=== PATIENT | female | born 1935 | race African-American/Black ===

== ENCOUNTER → 2017-06-12 | Outpatient (CLI) | payer MEDICARE, MEDICAID | END | disposition home or self-care (01) | LOC: RAD 14:01 | PROVIDERS: ATTEND Internal Medicine Cardiovascular Disease | DX: Z01.818 Encounter for other preprocedural examination (principal); I51.7 Cardiomegaly; I48.91 Unspecified atrial fibrillation | CPT/HCPCS: 71046 ==

== ENCOUNTER 2018-12-01 12:58 | Emergency (ER) | payer MEDICARE, MEDICAID ==
[~2018-12-01] VITALS: Ht 172.7 cm; Wt 130.0 kg
[~2018-12-01 12:58] MED LIST: ACET12.53 PO; APIX2.5T PO; FURO40TA5 PO; GLIP5TAB12 PO; HYDR-4133 PO; METO25TA6 PO
[2018-12-01] MEDS ORDERED: ACETAMINOPHEN WITH CODEINE 300/30MG TABLET PO STA (16:02)
[2018-12-01] MEDS ORDERED: FUROSEMIDE 40MG TABLET PO ONE (16:15)
[2018-12-01] MEDS ORDERED: METOPROLOL TARTRATE 100MG TABLET PO ONE (16:15)
[2018-12-01 16:41] LABS: BASOPHILS % 1.5 % (0.0-2.0); EOSINOPHILS % 1.6 % (0.0-5.0); HEMATOCRIT. 29.7 % (36.0-48.0); HEMOGLOBIN. 9.7 g/dL (12.0-16.0); LYMPHOCYTES % 23.5 % (20.0-50.0); MEAN CORPUSCULAR HEMOGLOBIN 33.2 pg (28.0-32.0); MEAN CORPUSCULAR VOLUME 101.5 fL (81.0-99.0); MEAN PLATELET VOLUME 8.9 fl (7.4-10.4); MONOCYTES % 12.9 % (2.0-8.0); NEUTROPHILS % 60.5 % (40.0-76.0); PLATELET 133 x1000/uL (130-400); RED BLOOD CELL COUNT 2.93 mill/uL (4.2-5.4); RED CELL DISTRIBUTION WIDTH 14.7 % (11.6-14.6)
[2018-12-01 16:44] LABS: CHLORIDE 112 mEq/L (98-107)
[2018-12-01 18:45] VITALS: BP 175/81
== END 2018-12-01 18:45 | disposition home or self-care (01) ==
LOC: ER 14:39
DX: M79.674 Pain in right toe(s) (principal); I16.0 Hypertensive urgency
CPT/HCPCS: 36415; 73660; 93005; 99284

== ENCOUNTER 2019-04-28 22:46 | Inpatient (IN) | payer MEDICARE, MEDICAID ==
[~2019-04-28] VITALS: Ht 165.1 cm; Wt 96.6 kg
[2019-04-28] MEDS ORDERED: ALBUTEROL (0.083%) 2.5MG/3ML NEB HHN STA (23:12)
[2019-04-28] MEDS ORDERED: IPRATROPIUM BROMIDE (0.02%) 0.5MG/2.5ML NEB HHN STA (23:12)
[2019-04-28] MEDS ORDERED: NITROGLYCERIN OINT 1GM/INCH UDPKT TD ONE (23:15)
[2019-04-28] MEDS ORDERED: MAGNESIUM 2 G PREMIX 50 ML IV ONE (23:15)
[2019-04-28] MEDS ORDERED: FUROSEMIDE 40MG/4ML VIAL IV ONE (23:15)
[2019-04-28 23:45] LABS: BASOPHILS % 1.1 % (0.0-2.0); EOSINOPHILS % 0.2 % (0.0-5.0); HEMATOCRIT. 29.8 % (36.0-48.0); HEMOGLOBIN. 9.9 g/dL (12.0-16.0); LYMPHOCYTES % 9.5 % (20.0-50.0); MEAN CORPUSCULAR HEMOGLOBIN 33.4 pg (28.0-32.0); MEAN CORPUSCULAR VOLUME 100.7 fL (81.0-99.0); MEAN PLATELET VOLUME 9.2 fl (7.4-10.4); MONOCYTES % 12.2 % (2.0-8.0); PLATELET 121 x1000/uL (130-400); RED BLOOD CELL COUNT 2.96 mill/uL (4.2-5.4); RED CELL DISTRIBUTION WIDTH 14.3 % (11.6-14.6)
[2019-04-28 23:48] LABS: CHLORIDE 109 mEq/L (98-107)
[2019-04-29] VITALS (9 sets, daily range): BP systolic 90–156; BP diastolic 38–99
[2019-04-29 04:42] LABS: BG BASE EXCESS 1.6 mmol/L (-2.0-2.0); BG BILEVEL POS AIRWAY PRESSURE 15/5; BG CARBOXYHEMOGLOBIN 0.6 % (0.5-1.5); BG DEOXYHEMOGLOBIN 4.7 % (0.0-5.0); BG FRACTION INSPIRED OXYGEN 35; BG HCO3 ACT 28.6 mmol/L (22.0-26.0); BG METHEMOGLOBIN 0.3 % (0.0-1.5); BG OXYGEN SATURATION 95.3 % (92.0-98.5); BG OXYHEMOGLOBIN 94.4 % (94.0-97.0); BG PCO2 59.4 mmHg (35.0-45.0); BG PH 7.301 (7.350-7.450); BG PO2 83.9 mmHg (75.0-100.0); BG SAMPLE SITE RIGHT RADIAL; BG TOTAL HEMOGLOBIN 8.9 g/dL (12.0-18.0); BG VENT MODE MASK - BIPAP; BG VENT RATE 16 set
[2019-04-29] MEDS ORDERED: ENOXAPARIN 40MG/0.4ML SYR SUBCUT SCH (11:30)
[2019-04-29] MEDS ORDERED: ACETAMINOPHEN 325MG TABLET PO PRN (15:00)
[2019-04-29] MEDS ORDERED: DEXTROSE 50% WATER 50ML SYRINGE IV PRN (15:00)
[2019-04-29] MEDS: POTASSIUM CHLORIDE 20MEQ TABLET SR PO SCH (15:27)
[2019-04-29] MEDS: GUAIFENESIN 200MG/10ML SUGAR FREE UDC PO PRN (15:27)
[2019-04-29] MEDS: DILTIAZEM HCL 60MG TABLET PO SCH ×2 (15:28→21:32)
[2019-04-29] MEDS: FUROSEMIDE 40MG/4ML VIAL IVP SCH (17:40)
[2019-04-29] MEDS: BLOOD SUGAR DIAGNOSTIC STRIP TEST SCH ×2 (17:40→21:32)
[2019-04-29] MEDS: APIXABAN 2.5 MG TABLET PO SCH (17:40)
[2019-04-29] MEDS: INSULIN LISPRO 100 UNITS/ML SUBCUT SCH ×2 (18:00→21:33)
[2019-04-29] MEDS: IPRATROPIUM/ALBUTEROL 0.5-3(2.5)MG/3ML NEB HHN SCH (20:24)
[2019-04-29] MEDS ORDERED: PREDNISONE 20MG TABLET PO SCH (23:45)
[2019-04-30] VITALS (12 sets, daily range): BP systolic 110–152; BP diastolic 49–89
[2019-04-30] MEDS: IPRATROPIUM/ALBUTEROL 0.5-3(2.5)MG/3ML NEB HHN SCH ×4 (01:03→20:44)
[2019-04-30 05:34] LABS: CHLORIDE 108 mEq/L (98-107)
[2019-04-30 05:48] LABS: BASOPHILS % 0.2 % (0.0-2.0); EOSINOPHILS % 0.1 % (0.0-5.0); HEMOGLOBIN. 9.6 g/dL (12.0-16.0); LYMPHOCYTES % 11.5 % (20.0-50.0); MEAN CORPUSCULAR HEMOGLOBIN 33.3 pg (28.0-32.0); MEAN CORPUSCULAR VOLUME 100.6 fL (81.0-99.0); MEAN PLATELET VOLUME 9.7 fl (7.4-10.4); MONOCYTES % 13.9 % (2.0-8.0); NEUTROPHILS % 74.3 % (40.0-76.0); PLATELET 125 x1000/uL (130-400); RED BLOOD CELL COUNT 2.89 mill/uL (4.2-5.4); RED CELL DISTRIBUTION WIDTH 14.3 % (11.6-14.6)
[2019-04-30] MEDS: DILTIAZEM HCL 60MG TABLET PO SCH ×3 (06:13→21:14)
[2019-04-30] MEDS: FUROSEMIDE 40MG/4ML VIAL IVP SCH ×2 (06:14→18:25)
[2019-04-30] MEDS: BLOOD SUGAR DIAGNOSTIC STRIP TEST SCH ×4 (08:17→21:00)
[2019-04-30] MEDS: APIXABAN 2.5 MG TABLET PO SCH ×2 (08:26→18:25)
[2019-04-30] MEDS: ONDANSETRON HCL 4MG/2ML INJ IV PRN ×2 (08:26→18:25)
[2019-04-30] MEDS: INSULIN LISPRO 100 UNITS/ML SUBCUT SCH ×4 (08:26→21:22)
[2019-04-30] MEDS: POTASSIUM CHLORIDE 20MEQ TABLET SR PO SCH ×2 (08:27→08:34)
[2019-04-30] MEDS ORDERED: METOCLOPRAMIDE HCL 10MG/2ML VIAL IV NR (12:30)
[2019-04-30] MEDS ORDERED: LACTULOSE 20G/30ML UDC PO NR (12:30)
[2019-05-01] VITALS (11 sets, daily range): BP systolic 125–167; BP diastolic 55–94
[2019-05-01] MEDS: ONDANSETRON HCL 4MG/2ML INJ IV PRN (01:04)
[2019-05-01] MEDS: IPRATROPIUM/ALBUTEROL 0.5-3(2.5)MG/3ML NEB HHN SCH ×4 (02:19→20:17)
[2019-05-01] MEDS: CLONIDINE 0.1MG TABLET PO PRN (04:49)
[2019-05-01] MEDS: FUROSEMIDE 40MG/4ML VIAL IVP SCH ×2 (06:33→16:59)
[2019-05-01] MEDS: DILTIAZEM HCL 60MG TABLET PO SCH ×3 (06:33→21:43)
[2019-05-01 07:32] LABS: BASOPHILS % 0.2 % (0.0-2.0); HEMATOCRIT. 29.2 % (36.0-48.0); HEMOGLOBIN. 9.7 g/dL (12.0-16.0); MEAN CORPUSCULAR HEMOGLOBIN 33.7 pg (28.0-32.0); MEAN CORPUSCULAR VOLUME 100.9 fL (81.0-99.0); MEAN PLATELET VOLUME 9.3 fl (7.4-10.4); MONOCYTES % 14.9 % (2.0-8.0); NEUTROPHILS % 76.9 % (40.0-76.0); PLATELET 122 x1000/uL (130-400); RED BLOOD CELL COUNT 2.89 mill/uL (4.2-5.4); RED CELL DISTRIBUTION WIDTH 13.8 % (11.6-14.6)
[2019-05-01] MEDS: BLOOD SUGAR DIAGNOSTIC STRIP TEST SCH ×4 (07:43→21:42)
[2019-05-01] MEDS: APIXABAN 2.5 MG TABLET PO SCH ×2 (08:00→16:54)
[2019-05-01] MEDS: POTASSIUM CHLORIDE 20MEQ TABLET SR PO SCH (08:01)
[2019-05-01] MEDS: INSULIN LISPRO 100 UNITS/ML SUBCUT SCH ×4 (08:04→21:42)
[2019-05-02] VITALS (11 sets, daily range): BP systolic 127–171; BP diastolic 50–92
[2019-05-02] MEDS: IPRATROPIUM/ALBUTEROL 0.5-3(2.5)MG/3ML NEB HHN SCH ×4 (01:40→20:56)
[2019-05-02] MEDS: FUROSEMIDE 40MG/4ML VIAL IVP SCH ×2 (06:11→16:45)
[2019-05-02] MEDS: DILTIAZEM HCL 60MG TABLET PO SCH ×3 (06:12→21:22)
[2019-05-02] MEDS: INSULIN LISPRO 100 UNITS/ML SUBCUT SCH ×4 (08:00→21:00)
[2019-05-02] MEDS: BLOOD SUGAR DIAGNOSTIC STRIP TEST SCH ×4 (08:12→21:00)
[2019-05-02] MEDS: APIXABAN 2.5 MG TABLET PO SCH ×2 (09:14→17:26)
[2019-05-02] MEDS: POTASSIUM CHLORIDE 20MEQ TABLET SR PO SCH (09:14)
[2019-05-02] MEDS: CLONIDINE 0.1MG TABLET PO PRN (16:46)
[2019-05-03] VITALS (12 sets, daily range): BP systolic 139–165; BP diastolic 58–91
[2019-05-03] MEDS: IPRATROPIUM/ALBUTEROL 0.5-3(2.5)MG/3ML NEB HHN SCH ×4 (01:03→21:45)
[2019-05-03] MEDS: DILTIAZEM HCL 60MG TABLET PO SCH ×3 (06:14→22:11)
[2019-05-03] MEDS: FUROSEMIDE 40MG/4ML VIAL IVP SCH ×2 (06:14→18:13)
[2019-05-03 07:44] LABS: HEMATOCRIT. 30.7 % (36.0-48.0); HEMOGLOBIN. 10.3 g/dL (12.0-16.0); MEAN CORPUSCULAR HEMOGLOBIN 33.5 pg (28.0-32.0); MEAN CORPUSCULAR VOLUME 100.2 fL (81.0-99.0); MEAN PLATELET VOLUME 9.3 fl (7.4-10.4); PLATELET 126 x1000/uL (130-400); RED BLOOD CELL COUNT 3.06 mill/uL (4.2-5.4); RED CELL DISTRIBUTION WIDTH 13.9 % (11.6-14.6)
[2019-05-03] MEDS: APIXABAN 2.5 MG TABLET PO SCH ×2 (08:22→18:13)
[2019-05-03] MEDS: INSULIN LISPRO 100 UNITS/ML SUBCUT SCH ×4 (08:23→22:20)
[2019-05-03] MEDS: POTASSIUM CHLORIDE 20MEQ TABLET SR PO SCH (08:23)
[2019-05-03] MEDS: BLOOD SUGAR DIAGNOSTIC STRIP TEST SCH ×4 (08:24→21:00)
[2019-05-03 08:48] LABS: BG BASE EXCESS 9.7 mmol/L (-2.0-2.0); BG CARBOXYHEMOGLOBIN 0.1 % (0.5-1.5); BG DEOXYHEMOGLOBIN 23.9 % (0.0-5.0); BG HCO3 ACT 37.7 mmol/L (22.0-26.0); BG METHEMOGLOBIN 0.2 % (0.0-1.5); BG OXYHEMOGLOBIN 75.8 % (94.0-97.0); BG PCO2 72.1 mmHg (35.0-45.0); BG PH 7.336 (7.350-7.450); BG PO2 39.5 mmHg (75.0-100.0); BG SAMPLE SITE RIGHT RADIAL; BG TOTAL HEMOGLOBIN 10.8 g/dL (12.0-18.0); BG VENT MODE ROOM AIR
[2019-05-03] MEDS: CLONIDINE 0.1MG TABLET PO PRN (11:44)
[2019-05-03 14:08] LABS: PLATELET ESTIMATE SLIGHTLY DECREASED
[2019-05-03] MEDS: CLONIDINE 0.1MG TABLET PO SCH ×2 (15:36→22:10)
[2019-05-04] VITALS (13 sets, daily range): BP systolic 120–190; BP diastolic 61–92
[2019-05-04] MEDS: IPRATROPIUM/ALBUTEROL 0.5-3(2.5)MG/3ML NEB HHN SCH ×4 (02:00→22:10)
[2019-05-04] MEDS: CLONIDINE 0.1MG TABLET PO PRN ×2 (03:28→18:50)
[2019-05-04] MEDS: DILTIAZEM HCL 60MG TABLET PO SCH ×3 (05:51→21:17)
[2019-05-04] MEDS: FUROSEMIDE 40MG/4ML VIAL IVP SCH ×2 (06:41→18:51)
[2019-05-04] MEDS: BLOOD SUGAR DIAGNOSTIC STRIP TEST SCH ×4 (07:47→21:12)
[2019-05-04] MEDS: INSULIN LISPRO 100 UNITS/ML SUBCUT SCH ×4 (08:00→21:14)
[2019-05-04] MEDS: APIXABAN 2.5 MG TABLET PO SCH ×2 (08:28→18:50)
[2019-05-04] MEDS: CLONIDINE 0.1MG TABLET PO SCH ×2 (08:29→21:16)
[2019-05-05 02:00] VITALS: BP 141/58
[2019-05-05] MEDS: IPRATROPIUM/ALBUTEROL 0.5-3(2.5)MG/3ML NEB HHN SCH ×2 (02:38→08:11)
[2019-05-05 03:48] VITALS: BP 135/63
[2019-05-05] MEDS: DILTIAZEM HCL 60MG TABLET PO SCH (05:20)
[2019-05-05 06:01] VITALS: BP 132/64
[2019-05-05] MEDS: FUROSEMIDE 40MG/4ML VIAL IVP SCH (06:11)
[2019-05-05] MEDS: BLOOD SUGAR DIAGNOSTIC STRIP TEST SCH (07:30)
[2019-05-05] MEDS: CLONIDINE 0.1MG TABLET PO SCH (08:44)
[2019-05-05] MEDS: GUAIFENESIN 200MG/10ML SUGAR FREE UDC PO PRN (08:44)
[2019-05-05] MEDS: APIXABAN 2.5 MG TABLET PO SCH (08:44)
[2019-05-05] MEDS: INSULIN LISPRO 100 UNITS/ML SUBCUT SCH (08:59)
[2019-05-05 09:33] VITALS: BP 142/74
== END 2019-05-05 13:20 | disposition home or self-care (01) | DRG 291 ==
LOC: ER 22:46 → EDBEDREQ 04-29 04:59 → EDBEDREQTM 04-29 04:59 → ENRESERV 04-29 08:13 → 5EST 04-29 08:42
PROVIDERS: ADMIT Internal Medicine; ATTEND Internal Medicine
PROC: 5A09457 Assistance with Respiratory Ventilation, 24-96 Consecutive Hours, Continuous Positive Airway Pressure (ICD-10-PCS; principal; 2019-04-28)
DX: I13.0 Hypertensive heart and chronic kidney disease with heart failure and stage 1 through stage 4 chronic kidney disease, or unspecified chronic kidney disease (principal); I50.23 Acute on chronic systolic (congestive) heart failure; J96.21 Acute and chronic respiratory failure with hypoxia; J96.22 Acute and chronic respiratory failure with hypercapnia; J44.1 Chronic obstructive pulmonary disease with (acute) exacerbation; I48.20 Chronic atrial fibrillation, unspecified; E87.2 Acidosis; N17.9 Acute kidney failure, unspecified; I50.32 Chronic diastolic (congestive) heart failure; I42.9 Cardiomyopathy, unspecified; E11.22 Type 2 diabetes mellitus with diabetic chronic kidney disease; E78.5 Hyperlipidemia, unspecified; E87.5 Hyperkalemia; I27.20 Pulmonary hypertension, unspecified; J06.9 Acute upper respiratory infection, unspecified; N18.3 Chronic kidney disease, stage 3 (moderate); Z79.01 Long term (current) use of anticoagulants; Z79.899 Other long term (current) drug therapy; Z85.038 Personal history of other malignant neoplasm of large intestine; Z86.73 Personal history of transient ischemic attack (TIA), and cerebral infarction without residual deficits; Z87.891 Personal history of nicotine dependence; Z88.0 Allergy status to penicillin
CPT/HCPCS: 36415; 36600; 71045; 74018; 80048; 80053; 82375; 82805; 82962; 83880; 84484; 85025; 93005; 93306; 93970; 94640; 94644; 94660; 97116; 97162; 99291; A6261; J1815; J1940; J2405; J2765; J3475; J7512; J7611; J7620

== ENCOUNTER 2019-05-06 04:04 | Inpatient (IN) | payer MEDICARE, MEDICAID ==
[~2019-05-06] VITALS: Ht 172.7 cm; Wt 123.9 kg
[2019-05-06] VITALS (9 sets, daily range): BP systolic 139–197; BP diastolic 59–150
[2019-05-06 06:56] LABS: BG BASE EXCESS 4.8 mmol/L (-2.0-2.0); BG CARBOXYHEMOGLOBIN 0.9 % (0.5-1.5); BG DEOXYHEMOGLOBIN 10.9 % (0.0-5.0); BG FRACTION INSPIRED OXYGEN 28; BG HCO3 ACT 32.5 mmol/L (22.0-26.0); BG METHEMOGLOBIN 0.2 % (0.0-1.5); BG PCO2 65.2 mmHg (35.0-45.0); BG PH 7.315 (7.350-7.450); BG PO2 61.3 mmHg (75.0-100.0); BG SAMPLE SITE RIGHT RADIAL; BG TOTAL HEMOGLOBIN 11.2 g/dL (12.0-18.0); BG VENT MODE NASAL CANNULA
[2019-05-06 07:39] LABS: HEMATOCRIT. 32.7 % (36.0-48.0); HEMOGLOBIN. 10.8 g/dL (12.0-16.0); MEAN CORPUSCULAR HEMOGLOBIN 32.8 pg (28.0-32.0); MEAN CORPUSCULAR VOLUME 98.9 fL (81.0-99.0); MEAN PLATELET VOLUME 9.1 fl (7.4-10.4); PLATELET 165 x1000/uL (130-400); RED CELL DISTRIBUTION WIDTH 13.6 % (11.6-14.6)
[2019-05-06 07:42] LABS: CHLORIDE 94 mEq/L (98-107)
[2019-05-06] MEDS ORDERED: IPRATROPIUM BROMIDE (0.02%) 0.5MG/2.5ML NEB HHN STA (07:55)
[2019-05-06] MEDS ORDERED: ALBUTEROL (0.083%) 2.5MG/3ML NEB HHN STA (07:55)
[2019-05-06] MEDS ORDERED: METHYLPREDNISOLONE SOD SUCC 125 MG/2 ML VIAL IV STA (07:55)
[2019-05-06] MEDS ORDERED: LEVOFLOXACIN 750MG PREMIX 150 ML IV ONE (08:15)
[2019-05-06 08:19] LABS: INR 1.2; PROTHROMBIN TIME 12.6 sec (9.6-11.0)
[2019-05-06 10:40] LABS: PLATELET ESTIMATE NORMAL
[2019-05-06] MEDS ORDERED: METHYLPREDNISOLONE SOD SUCC 125 MG/2 ML VIAL IV SCH (13:00)
[2019-05-06] MEDS ORDERED: ACETAMINOPHEN 325MG TABLET PO PRN (15:00)
[2019-05-06] MEDS ORDERED: ENOXAPARIN 40MG/0.4ML SYR SUBCUT SCH (15:00)
[2019-05-06] MEDS ORDERED: DIPHENHYDRAMINE 50MG/ML VIAL IV PRN (15:00)
[2019-05-06] MEDS ORDERED: IPRATROPIUM/ALBUTEROL 0.5-3(2.5)MG/3ML NEB NEB PRN (15:00)
[2019-05-06] MEDS ORDERED: ONDANSETRON HCL 4MG/2ML INJ IV PRN (15:00)
[2019-05-06] MEDS ORDERED: CLONIDINE 0.1MG TABLET PO PRN (15:00)
[2019-05-06] MEDS ORDERED: MAGNESIUM/ALUMINUM HYDROXIDE/SIMETHICONE 30ML UDC PO PRN (15:00)
[2019-05-06] MEDS ORDERED: DEXTROSE 50% WATER 50ML SYRINGE IV PRN (15:00)
[2019-05-06] MEDS ORDERED: HYDRALAZINE 20MG/ML VIAL IV PRN (15:00)
[2019-05-06] MEDS ORDERED: MAGNESIUM HYDROXIDE 400MG/5ML 30ML UDC PO PRN (15:00)
[2019-05-06] MEDS: BLOOD SUGAR DIAGNOSTIC STRIP TEST SCH ×2 (16:50→21:36)
[2019-05-06] MEDS: INSULIN LISPRO 100 UNITS/ML SUBCUT SCH ×2 (17:20→21:43)
[2019-05-06] MEDS: DOCUSATE SODIUM 100MG CAPSULE PO SCH (18:43)
[2019-05-06] MEDS: CLONIDINE 0.1MG TABLET PO SCH ×2 (18:43→21:00)
[2019-05-06] MEDS: APIXABAN 2.5 MG TABLET PO SCH (18:44)
[2019-05-06] MEDS ORDERED: FAMOTIDINE 20MG TABLET PO SCH (21:00)
[2019-05-06] MEDS: METHYLPREDNISOLONE SOD SUCC 125 MG/2 ML VIAL IV SCH (21:24)
[2019-05-06] MEDS: SILDENAFIL CITRATE 20MG TABLET PO SCH (21:24)
[2019-05-06] MEDS: SODIUM CHLORIDE 0.9% INJ 3ML FLUSH IVF SCH (21:24)
[2019-05-06] MEDS: DILTIAZEM HCL 60MG TABLET PO SCH (21:24)
[2019-05-06] MEDS: INSULIN GLARGINE UD 100 UNITS/ML SYR SUBCUT SCH (21:36)
[2019-05-06] MEDS: FAMOTIDINE 40MG TABLET PO SCH (21:41)
[2019-05-06] MEDS: IPRATROPIUM/ALBUTEROL 0.5-3(2.5)MG/3ML NEB HHN SCH (22:28)
[2019-05-07] VITALS (16 sets, daily range): BP systolic 123–178; BP diastolic 65–99
[2019-05-07] MEDS: IPRATROPIUM/ALBUTEROL 0.5-3(2.5)MG/3ML NEB HHN SCH ×4 (02:41→21:26)
[2019-05-07] MEDS: BLOOD SUGAR DIAGNOSTIC STRIP TEST SCH ×4 (06:08→21:00)
[2019-05-07] MEDS: SODIUM CHLORIDE 0.9% INJ 3ML FLUSH IVF SCH ×3 (06:08→22:14)
[2019-05-07] MEDS: SILDENAFIL CITRATE 20MG TABLET PO SCH ×3 (06:08→22:15)
[2019-05-07] MEDS: METHYLPREDNISOLONE SOD SUCC 125 MG/2 ML VIAL IV SCH ×3 (06:08→22:14)
[2019-05-07] MEDS: DILTIAZEM HCL 60MG TABLET PO SCH ×3 (06:08→22:15)
[2019-05-07] MEDS: INSULIN LISPRO 100 UNITS/ML SUBCUT SCH ×4 (07:56→22:32)
[2019-05-07] MEDS: APIXABAN 2.5 MG TABLET PO SCH ×2 (08:13→17:43)
[2019-05-07] MEDS: FUROSEMIDE 40MG/4ML VIAL IVP SCH (08:13)
[2019-05-07] MEDS: CLONIDINE 0.1MG TABLET PO SCH ×2 (08:13→22:16)
[2019-05-07] MEDS: DOCUSATE SODIUM 100MG CAPSULE PO SCH ×2 (08:13→17:43)
[2019-05-07] MEDS: LOSARTAN POTASSIUM 100 MG TABLET PO SCH (12:36)
[2019-05-07] MEDS: FAMOTIDINE 40MG TABLET PO SCH (22:16)
[2019-05-07] MEDS: INSULIN GLARGINE UD 100 UNITS/ML SYR SUBCUT SCH (22:28)
[2019-05-07] MEDS: GUAIFENESIN 200MG/10ML SUGAR FREE UDC PO PRN (22:32)
[2019-05-08] VITALS (14 sets, daily range): BP systolic 114–158; BP diastolic 61–83
[2019-05-08] MEDS: IPRATROPIUM/ALBUTEROL 0.5-3(2.5)MG/3ML NEB HHN SCH ×3 (04:02→14:30)
[2019-05-08] MEDS: SILDENAFIL CITRATE 20MG TABLET PO SCH ×3 (06:05→22:30)
[2019-05-08] MEDS: DILTIAZEM HCL 60MG TABLET PO SCH ×3 (06:07→22:32)
[2019-05-08] MEDS: SODIUM CHLORIDE 0.9% INJ 3ML FLUSH IVF SCH ×3 (06:08→22:00)
[2019-05-08] MEDS: BLOOD SUGAR DIAGNOSTIC STRIP TEST SCH ×4 (06:08→21:00)
[2019-05-08] MEDS: METHYLPREDNISOLONE SOD SUCC 125 MG/2 ML VIAL IV SCH ×3 (06:08→22:32)
[2019-05-08 06:50] LABS: HEMATOCRIT. 32.2 % (36.0-48.0); HEMOGLOBIN. 10.8 g/dL (12.0-16.0); MEAN PLATELET VOLUME 8.7 fl (7.4-10.4); PLATELET 217 x1000/uL (130-400); RED BLOOD CELL COUNT 3.28 mill/uL (4.2-5.4); RED CELL DISTRIBUTION WIDTH 13.5 % (11.6-14.6)
[2019-05-08 06:58] LABS: PHOSPHORUS 2.3 mg/dL (2.5-4.9)
[2019-05-08 08:00] LABS: PLATELET ESTIMATE NORMAL
[2019-05-08] MEDS ORDERED: LEVOFLOXACIN 500MG PREMIX 100 ML IV SCH (08:00)
[2019-05-08] MEDS: INSULIN LISPRO 100 UNITS/ML SUBCUT SCH ×4 (08:38→22:36)
[2019-05-08] MEDS: DOCUSATE SODIUM 100MG CAPSULE PO SCH ×2 (08:39→17:36)
[2019-05-08] MEDS: APIXABAN 2.5 MG TABLET PO SCH ×2 (08:39→17:36)
[2019-05-08] MEDS: FUROSEMIDE 40MG/4ML VIAL IVP SCH (08:39)
[2019-05-08] MEDS: LOSARTAN POTASSIUM 100 MG TABLET PO SCH (08:39)
[2019-05-08] MEDS: CLONIDINE 0.1MG TABLET PO SCH ×2 (08:39→22:31)
[2019-05-08] MEDS ORDERED: INSULIN GLARGINE UD 100 UNITS/ML SYR SUBCUT SCH (22:00)
[2019-05-08] MEDS: FAMOTIDINE 40MG TABLET PO SCH (22:31)
[2019-05-08] MEDS: GUAIFENESIN 200MG/10ML SUGAR FREE UDC PO PRN (23:00)
[2019-05-09] VITALS (10 sets, daily range): BP systolic 127–171; BP diastolic 64–86
[2019-05-09] MEDS: IPRATROPIUM/ALBUTEROL 0.5-3(2.5)MG/3ML NEB HHN SCH ×2 (01:12→01:20)
[2019-05-09] MEDS: DILTIAZEM HCL 60MG TABLET PO SCH ×2 (06:30→14:12)
[2019-05-09] MEDS: SILDENAFIL CITRATE 20MG TABLET PO SCH ×2 (06:30→14:12)
[2019-05-09] MEDS: METHYLPREDNISOLONE SOD SUCC 125 MG/2 ML VIAL IV SCH (06:30)
[2019-05-09] MEDS: SODIUM CHLORIDE 0.9% INJ 3ML FLUSH IVF SCH ×2 (06:30→14:00)
[2019-05-09] MEDS: BLOOD SUGAR DIAGNOSTIC STRIP TEST SCH ×2 (06:31→11:28)
[2019-05-09] MEDS: INSULIN LISPRO 100 UNITS/ML SUBCUT SCH ×2 (08:09→12:31)
[2019-05-09] MEDS: FUROSEMIDE 40MG/4ML VIAL IVP SCH (09:00)
[2019-05-09] MEDS: DOCUSATE SODIUM 100MG CAPSULE PO SCH (09:00)
[2019-05-09] MEDS: APIXABAN 2.5 MG TABLET PO SCH (09:00)
[2019-05-09] MEDS: LOSARTAN POTASSIUM 100 MG TABLET PO SCH (09:01)
[2019-05-09] MEDS: CLONIDINE 0.1MG TABLET PO SCH (09:01)
[2019-05-09] MEDS: GUAIFENESIN 200MG/10ML SUGAR FREE UDC PO PRN (09:07)
[2019-05-09] MEDS: LACTULOSE 20G/30ML UDC PO SCH ×2 (12:31→14:12)
[2019-05-09] MEDS ORDERED: BISACODYL 10MG SUPP PR NR (13:30)
[2019-05-09 17:41] LABS: HEMATOCRIT 34.1 % (36.0-48.0); HEMOGLOBIN 11.4 g/dL (12.0-16.0); MEAN CORPUSCULAR HEMOGLOBIN 32.8 pg (28.0-32.0); MEAN CORPUSCULAR VOLUME 98.5 fL (81.0-99.0); PLATELET 242 x1000/uL (130-400); RED BLOOD CELL COUNT 3.47 mill/uL (4.2-5.4); RED CELL DISTRIBUTION WIDTH 13.6 % (11.6-14.6)
[2019-05-09 17:49] LABS: PHOSPHORUS 2.3 mg/dL (2.5-4.9)
[2019-05-10] MEDS ORDERED: PREDNISONE 10MG TABLET PO SCH (09:00)
[2019-05-10] MEDS ORDERED: LEVOFLOXACIN 500MG TABLET PO SCH (11:00)
== END 2019-05-09 16:23 | DRG 189 ==
LOC: ER 04:04 → 3WST 08:19 → EDBEDREQ 08:21 → ENRESERV 12:07
PROVIDERS: ADMIT Internal Medicine; ATTEND Internal Medicine
PROC: 5A09357 Assistance with Respiratory Ventilation, Less than 24 Consecutive Hours, Continuous Positive Airway Pressure (ICD-10-PCS; principal; 2019-05-06)
PROC: 5A09357 Assistance with Respiratory Ventilation, Less than 24 Consecutive Hours, Continuous Positive Airway Pressure (ICD-10-PCS; 2019-05-09)
DX: J96.01 Acute respiratory failure with hypoxia (principal); I50.43 Acute on chronic combined systolic (congestive) and diastolic (congestive) heart failure; I13.0 Hypertensive heart and chronic kidney disease with heart failure and stage 1 through stage 4 chronic kidney disease, or unspecified chronic kidney disease; N17.9 Acute kidney failure, unspecified; J44.1 Chronic obstructive pulmonary disease with (acute) exacerbation; I48.20 Chronic atrial fibrillation, unspecified; I42.9 Cardiomyopathy, unspecified; J96.02 Acute respiratory failure with hypercapnia; E11.22 Type 2 diabetes mellitus with diabetic chronic kidney disease; I27.20 Pulmonary hypertension, unspecified; I07.1 Rheumatic tricuspid insufficiency; E66.01 Morbid (severe) obesity due to excess calories; E11.42 Type 2 diabetes mellitus with diabetic polyneuropathy; I25.10 Atherosclerotic heart disease of native coronary artery without angina pectoris; R26.9 Unspecified abnormalities of gait and mobility; N18.3 Chronic kidney disease, stage 3 (moderate); Z82.49 Family history of ischemic heart disease and other diseases of the circulatory system; Z99.81 Dependence on supplemental oxygen; Z79.899 Other long term (current) drug therapy; Z87.891 Personal history of nicotine dependence; Z88.0 Allergy status to penicillin; Z79.4 Long term (current) use of insulin; Z91.018 Allergy to other foods
CPT/HCPCS: 36415; 36600; 71045; 80048; 80053; 82375; 82805; 82962; 83605; 83735; 84100; 84145; 84484; 85025; 85027; 92610; 93005; 93970; 94640; 94660; 96365; 97162; 99291; J1815; J1940; J1956; J2930; A4315

== ENCOUNTER 2019-05-09 16:40 | Inpatient (IN) | payer MEDICARE, MEDICAID ==
[~2019-05-09] VITALS: Ht 172.7 cm; Wt 123.9 kg
[2019-05-09] MEDS ORDERED: ONDANSETRON HCL 4MG TABLET PO PRN ×2 (18:15→19:30)
[2019-05-09] MEDS ORDERED: NA PHOS,M-B/NA PHOS,DI-BA ENEMA 118ML PR PRN (18:15)
[2019-05-09] MEDS ORDERED: CLONIDINE 0.1MG TABLET PO PRN (18:15)
[2019-05-09] MEDS ORDERED: DIPHENHYDRAMINE 25MG CAPSULE PO PRN ×2 (18:15→19:30)
[2019-05-09] MEDS ORDERED: DEXTROSE 50% WATER 50ML SYRINGE IV PRN (18:15)
[2019-05-09 18:40] VITALS: BP 143/82
[2019-05-09] MEDS ORDERED: LACTULOSE 20G/30ML UDC PO SCH ×2 (19:00→21:00)
[2019-05-09] MEDS ORDERED: ACETAMINOPHEN 325MG TABLET PO PRN ×3 (19:30→23:45)
[2019-05-09] MEDS ORDERED: MAGNESIUM/ALUMINUM HYDROXIDE/SIMETHICONE 30ML UDC PO PRN (19:30)
[2019-05-09] MEDS ORDERED: IPRATROPIUM/ALBUTEROL 0.5-3(2.5)MG/3ML NEB HHN PRN (19:30)
[2019-05-09 20:00] VITALS: BP 130/66
[2019-05-09] MEDS: APIXABAN 2.5 MG TABLET PO SCH (20:28)
[2019-05-09] MEDS: FAMOTIDINE 40MG TABLET PO SCH (20:29)
[2019-05-09] MEDS: GUAIFENESIN 200MG/10ML SUGAR FREE UDC PO PRN (20:29)
[2019-05-09] MEDS: BLOOD SUGAR DIAGNOSTIC STRIP TEST SCH (21:27)
[2019-05-09] MEDS: DILTIAZEM HCL 60MG TABLET PO SCH (21:34)
[2019-05-09] MEDS: SILDENAFIL CITRATE 20MG TABLET PO SCH (21:34)
[2019-05-09] MEDS: INSULIN LISPRO 100 UNITS/ML SUBCUT SCH (21:35)
[2019-05-09] MEDS: INSULIN GLARGINE UD 100 UNITS/ML SYR SUBCUT SCH (21:35)
[2019-05-09] MEDS: SODIUM CHLORIDE 0.9% INJ 3ML FLUSH IVF SCH (21:36)
[2019-05-10] MEDS: IPRATROPIUM/ALBUTEROL 0.5-3(2.5)MG/3ML NEB HHN SCH ×4 (01:10→21:19)
[2019-05-10] MEDS: MAGNESIUM HYDROXIDE 400MG/5ML 30ML UDC PO PRN (05:10)
[2019-05-10] MEDS: SILDENAFIL CITRATE 20MG TABLET PO SCH ×3 (05:10→23:16)
[2019-05-10] MEDS: SODIUM CHLORIDE 0.9% INJ 3ML FLUSH IVF SCH ×3 (05:11→22:00)
[2019-05-10] MEDS: DILTIAZEM HCL 60MG TABLET PO SCH (05:11)
[2019-05-10] MEDS: GUAIFENESIN 200MG/10ML SUGAR FREE UDC PO PRN (05:12)
[2019-05-10] MEDS: BLOOD SUGAR DIAGNOSTIC STRIP TEST SCH ×4 (06:22→21:09)
[2019-05-10 06:48] LABS: HEMATOCRIT. 32.9 % (36.0-48.0); HEMOGLOBIN. 11.1 g/dL (12.0-16.0); MEAN CORPUSCULAR HEMOGLOBIN 33.1 pg (28.0-32.0); MEAN CORPUSCULAR VOLUME 98.3 fL (81.0-99.0); MEAN PLATELET VOLUME 8.7 fl (7.4-10.4); PLATELET 235 x1000/uL (130-400); RED BLOOD CELL COUNT 3.35 mill/uL (4.2-5.4); RED CELL DISTRIBUTION WIDTH 13.2 % (11.6-14.6)
[2019-05-10 07:09] LABS: CHLORIDE 100 mEq/L (98-107)
[2019-05-10 07:50] VITALS: BP 161/82
[2019-05-10] MEDS: LOSARTAN POTASSIUM 100 MG TABLET PO SCH (08:30)
[2019-05-10] MEDS: FUROSEMIDE 40MG TABLET PO SCH (08:30)
[2019-05-10] MEDS: DOCUSATE SODIUM 100MG CAPSULE PO SCH ×2 (08:30→17:12)
[2019-05-10] MEDS: APIXABAN 2.5 MG TABLET PO SCH ×2 (08:30→17:12)
[2019-05-10] MEDS: PREDNISONE 10MG TABLET PO SCH (08:31)
[2019-05-10] MEDS: CLONIDINE 0.1MG TABLET PO SCH ×2 (08:31→21:16)
[2019-05-10] MEDS: INSULIN LISPRO 100 UNITS/ML SUBCUT SCH ×4 (08:58→21:26)
[2019-05-10] MEDS: LEVOFLOXACIN 500MG TABLET PO SCH (10:51)
[2019-05-10] MEDS: DILTIAZEM HCL 90MG TABLET PO SCH ×2 (14:05→22:00)
[2019-05-10 14:37] LABS: PLATELET ESTIMATE NORMAL
[2019-05-10 20:00] VITALS: BP 147/65
[2019-05-10] MEDS: FAMOTIDINE 40MG TABLET PO SCH (21:17)
[2019-05-10] MEDS: INSULIN GLARGINE UD 100 UNITS/ML SYR SUBCUT SCH (21:33)
[2019-05-11] MEDS: IPRATROPIUM/ALBUTEROL 0.5-3(2.5)MG/3ML NEB HHN SCH ×4 (02:25→22:13)
[2019-05-11] MEDS: SODIUM CHLORIDE 0.9% INJ 3ML FLUSH IVF SCH ×3 (05:30→21:29)
[2019-05-11] MEDS: DILTIAZEM HCL 90MG TABLET PO SCH ×3 (05:31→21:17)
[2019-05-11] MEDS: BLOOD SUGAR DIAGNOSTIC STRIP TEST SCH ×4 (06:04→21:16)
[2019-05-11] MEDS: SILDENAFIL CITRATE 20MG TABLET PO SCH ×3 (06:27→21:24)
[2019-05-11] MEDS: INSULIN LISPRO 100 UNITS/ML SUBCUT SCH ×4 (06:31→21:29)
[2019-05-11 08:00] VITALS: BP 159/88
[2019-05-11] MEDS: PREDNISONE 10MG TABLET PO SCH (08:05)
[2019-05-11] MEDS: FUROSEMIDE 40MG TABLET PO SCH (08:06)
[2019-05-11] MEDS: LOSARTAN POTASSIUM 100 MG TABLET PO SCH (08:06)
[2019-05-11] MEDS: APIXABAN 2.5 MG TABLET PO SCH ×2 (08:06→16:26)
[2019-05-11] MEDS: DOCUSATE SODIUM 100MG CAPSULE PO SCH ×2 (08:06→16:26)
[2019-05-11] MEDS: CLONIDINE 0.1MG TABLET PO SCH ×2 (08:06→21:00)
[2019-05-11] MEDS: MAGNESIUM HYDROXIDE 400MG/5ML 30ML UDC PO PRN (08:07)
[2019-05-11 09:41] VITALS: BP 117/57
[2019-05-11] MEDS ORDERED: LACTULOSE 20G/30ML UDC PO SCH (11:00)
[2019-05-11 13:07] VITALS: BP 104/79
[2019-05-11] MEDS ORDERED: NA PHOS,M-B/NA PHOS,DI-BA ENEMA 118ML PR SCH (14:15)
[2019-05-11] MEDS ORDERED: BISACODYL 10MG SUPP PR PRN (14:15)
[2019-05-11 20:00] VITALS: BP 141/68
[2019-05-11] MEDS: FAMOTIDINE 40MG TABLET PO SCH (21:24)
[2019-05-11] MEDS: INSULIN GLARGINE UD 100 UNITS/ML SYR SUBCUT SCH (21:27)
[2019-05-12] MEDS: IPRATROPIUM/ALBUTEROL 0.5-3(2.5)MG/3ML NEB HHN SCH ×2 (02:58→20:16)
[2019-05-12] MEDS: DILTIAZEM HCL 90MG TABLET PO SCH ×3 (06:00→21:50)
[2019-05-12] MEDS: SODIUM CHLORIDE 0.9% INJ 3ML FLUSH IVF SCH ×3 (06:27→21:51)
[2019-05-12] MEDS: BLOOD SUGAR DIAGNOSTIC STRIP TEST SCH ×4 (06:28→21:53)
[2019-05-12] MEDS: SILDENAFIL CITRATE 20MG TABLET PO SCH ×3 (06:29→22:29)
[2019-05-12] MEDS: INSULIN LISPRO 100 UNITS/ML SUBCUT SCH ×4 (06:36→22:25)
[2019-05-12 08:00] VITALS: BP 149/80
[2019-05-12] MEDS: LOSARTAN POTASSIUM 100 MG TABLET PO SCH (08:36)
[2019-05-12] MEDS: CLONIDINE 0.1MG TABLET PO SCH ×2 (08:37→21:00)
[2019-05-12] MEDS: APIXABAN 2.5 MG TABLET PO SCH ×2 (08:37→16:44)
[2019-05-12] MEDS: DOCUSATE SODIUM 100MG CAPSULE PO SCH ×2 (08:37→16:44)
[2019-05-12] MEDS: FUROSEMIDE 40MG TABLET PO SCH (08:37)
[2019-05-12] MEDS: PREDNISONE 10MG TABLET PO SCH (08:37)
[2019-05-12] MEDS: LEVOFLOXACIN 500MG TABLET PO SCH (10:19)
[2019-05-12] MEDS ORDERED: FURO40TA5 PO (19:46)
[2019-05-12] MEDS ORDERED: HYDR-4134 PO (19:47)
[2019-05-12] MEDS ORDERED: GABA-529 PO (19:48)
[2019-05-12] MEDS ORDERED: CARV25TA47 PO (19:48)
[2019-05-12 20:00] VITALS: BP 159/77
[2019-05-12] MEDS: INSULIN GLARGINE UD 100 UNITS/ML SYR SUBCUT SCH (22:24)
[2019-05-12] MEDS: FAMOTIDINE 20MG TABLET PO SCH (22:30)
[2019-05-13] MEDS: IPRATROPIUM/ALBUTEROL 0.5-3(2.5)MG/3ML NEB HHN SCH ×4 (02:30→20:01)
[2019-05-13 04:25] LABS: CLARITY URINE CLEAR (CLEAR); COLOR URINE YELLOW (YELLOW); KETONES URINE NEGATIVE (NEGATIVE); LEUKOCYTE ESTERASE URINE NEGATIVE (NEGATIVE); NITRITE URINE NEGATIVE (NEGATIVE); OCCULT BLOOD URINE NEGATIVE (NEGATIVE); PROTEIN URINE 1+ (NEGATIVE); SPECIFIC GRAVITY URINE 1.013 (1.005-1.030); UROBILINOGEN URINE 0.2 E.U./dL (0.2-1.0)
[2019-05-13] MEDS: DILTIAZEM HCL 90MG TABLET PO SCH ×3 (06:00→21:46)
[2019-05-13] MEDS: SILDENAFIL CITRATE 20MG TABLET PO SCH ×3 (06:25→21:46)
[2019-05-13] MEDS: INSULIN LISPRO 100 UNITS/ML SUBCUT SCH ×4 (06:26→21:57)
[2019-05-13] MEDS: BLOOD SUGAR DIAGNOSTIC STRIP TEST SCH ×4 (06:26→21:46)
[2019-05-13] MEDS: SODIUM CHLORIDE 0.9% INJ 3ML FLUSH IVF SCH ×3 (06:27→21:48)
[2019-05-13 06:59] LABS: HEMATOCRIT. 34.3 % (36.0-48.0); HEMOGLOBIN. 11.5 g/dL (12.0-16.0); MEAN CORPUSCULAR HEMOGLOBIN 32.7 pg (28.0-32.0); MEAN CORPUSCULAR VOLUME 97.5 fL (81.0-99.0); MEAN PLATELET VOLUME 8.5 fl (7.4-10.4); PLATELET 227 x1000/uL (130-400); RED BLOOD CELL COUNT 3.51 mill/uL (4.2-5.4); RED CELL DISTRIBUTION WIDTH 13.4 % (11.6-14.6)
[2019-05-13 07:08] LABS: CHLORIDE 99 mEq/L (98-107)
[2019-05-13 07:16] LABS: PHOSPHORUS 2.2 mg/dL (2.5-4.9)
[2019-05-13 07:17] LABS: TOTAL IRON BINDING CAPACITY 211 ug/dL (250-450)
[2019-05-13 07:53] LABS: VITAMIN B12 SERUM > 2000.0 pg/mL (211-911)
[2019-05-13 07:59] VITALS: BP 124/60
[2019-05-13 08:35] VITALS: BP 124/60
[2019-05-13] MEDS: LOSARTAN POTASSIUM 100 MG TABLET PO SCH (09:01)
[2019-05-13] MEDS: CLONIDINE 0.1MG TABLET PO SCH ×2 (09:01→21:00)
[2019-05-13] MEDS: FUROSEMIDE 40MG TABLET PO SCH (09:01)
[2019-05-13] MEDS: APIXABAN 2.5 MG TABLET PO SCH ×2 (09:01→16:26)
[2019-05-13] MEDS: DOCUSATE SODIUM 100MG CAPSULE PO SCH ×2 (09:02→16:26)
[2019-05-13] MEDS: PREDNISONE 10MG TABLET PO SCH (09:02)
[2019-05-13 11:04] LABS: FERRITIN 440 ng/mL (10-291)
[2019-05-13 13:27] LABS: PLATELET ESTIMATE NORMAL
[2019-05-13 14:13] VITALS: BP 136/71
[2019-05-13] MEDS ORDERED: BISACODYL 10MG SUPP PR PRN (16:15)
[2019-05-13] MEDS ORDERED: NA PHOS,M-B/NA PHOS,DI-BA ENEMA 118ML PR NR (16:15)
[2019-05-13] MEDS ORDERED: NA PHOS,M-B/NA PHOS,DI-BA ENEMA 118ML PR PRN (16:15)
[2019-05-13] MEDS: LACTULOSE 20G/30ML UDC PO SCH ×2 (16:26→21:00)
[2019-05-13] MEDS: CLINDAMYCIN HCL 150MG CAPSULE PO SCH (17:25)
[2019-05-13 20:00] VITALS: BP 118/58
[2019-05-13] MEDS: INSULIN GLARGINE UD 100 UNITS/ML SYR SUBCUT SCH (21:58)
[2019-05-14] MEDS: CLINDAMYCIN HCL 150MG CAPSULE PO SCH ×4 (00:30→17:46)
[2019-05-14] MEDS: IPRATROPIUM/ALBUTEROL 0.5-3(2.5)MG/3ML NEB HHN SCH ×3 (01:59→20:35)
[2019-05-14] MEDS: BLOOD SUGAR DIAGNOSTIC STRIP TEST SCH ×4 (06:13→21:56)
[2019-05-14] MEDS: SODIUM CHLORIDE 0.9% INJ 3ML FLUSH IVF SCH ×3 (06:34→21:56)
[2019-05-14] MEDS: SILDENAFIL CITRATE 20MG TABLET PO SCH ×3 (06:35→21:56)
[2019-05-14] MEDS: DILTIAZEM HCL 90MG TABLET PO SCH ×3 (06:35→21:55)
[2019-05-14] MEDS: INSULIN LISPRO 100 UNITS/ML SUBCUT SCH ×4 (07:23→22:07)
[2019-05-14 08:00] VITALS: BP 118/50
[2019-05-14] MEDS: LACTULOSE 20G/30ML UDC PO SCH ×2 (09:00→09:41)
[2019-05-14] MEDS: FUROSEMIDE 40MG TABLET PO SCH (09:40)
[2019-05-14] MEDS: LOSARTAN POTASSIUM 100 MG TABLET PO SCH (09:41)
[2019-05-14] MEDS: DOCUSATE SODIUM 100MG CAPSULE PO SCH ×2 (09:41→16:44)
[2019-05-14] MEDS: PREDNISONE 10MG TABLET PO SCH (09:41)
[2019-05-14] MEDS: APIXABAN 2.5 MG TABLET PO SCH ×2 (09:41→16:44)
[2019-05-14] MEDS: CLONIDINE 0.1MG TABLET PO SCH ×2 (09:41→21:00)
[2019-05-14] MEDS ORDERED: POTASSIUM-SODIUM PHOSPHATE POWDER PACKET PO NR (17:00)
[2019-05-14 20:00] VITALS: BP 127/50
[2019-05-14] MEDS: FAMOTIDINE 20MG TABLET PO SCH (21:59)
[2019-05-14] MEDS: INSULIN GLARGINE UD 100 UNITS/ML SYR SUBCUT SCH (22:08)
[2019-05-15] MEDS: CLINDAMYCIN HCL 150MG CAPSULE PO SCH ×5 (00:31→23:59)
[2019-05-15] MEDS: IPRATROPIUM/ALBUTEROL 0.5-3(2.5)MG/3ML NEB HHN SCH ×4 (00:37→21:56)
[2019-05-15] MEDS: BLOOD SUGAR DIAGNOSTIC STRIP TEST SCH ×4 (06:04→21:00)
[2019-05-15] MEDS: DILTIAZEM HCL 90MG TABLET PO SCH ×3 (06:11→21:00)
[2019-05-15] MEDS: SODIUM CHLORIDE 0.9% INJ 3ML FLUSH IVF SCH ×2 (06:11→15:25)
[2019-05-15] MEDS: SILDENAFIL CITRATE 20MG TABLET PO SCH ×3 (06:11→21:00)
[2019-05-15] MEDS: INSULIN LISPRO 100 UNITS/ML SUBCUT SCH ×4 (06:12→21:06)
[2019-05-15 08:00] VITALS: BP 113/57
[2019-05-15] MEDS: FUROSEMIDE 40MG TABLET PO SCH (08:33)
[2019-05-15] MEDS: PREDNISONE 10MG TABLET PO SCH (08:33)
[2019-05-15] MEDS: APIXABAN 2.5 MG TABLET PO SCH ×2 (08:33→17:57)
[2019-05-15] MEDS: DOCUSATE SODIUM 100MG CAPSULE PO SCH ×2 (08:33→17:57)
[2019-05-15] MEDS: LOSARTAN POTASSIUM 100 MG TABLET PO SCH (08:33)
[2019-05-15] MEDS: CLONIDINE 0.1MG TABLET PO SCH ×2 (08:34→21:00)
[2019-05-15 10:41] LABS: BASOPHILS % 0.3 % (0.0-2.0); EOSINOPHILS % 1.5 % (0.0-5.0); HEMATOCRIT. 31.2 % (36.0-48.0); HEMOGLOBIN. 10.6 g/dL (12.0-16.0); LYMPHOCYTES % 11.5 % (20.0-50.0); MEAN CORPUSCULAR HEMOGLOBIN 33.2 pg (28.0-32.0); MEAN CORPUSCULAR VOLUME 98.2 fL (81.0-99.0); MEAN PLATELET VOLUME 9.2 fl (7.4-10.4); MONOCYTES % 8.7 % (2.0-8.0); PLATELET 196 x1000/uL (130-400); RED BLOOD CELL COUNT 3.18 mill/uL (4.2-5.4); RED CELL DISTRIBUTION WIDTH 13.4 % (11.6-14.6)
[2019-05-15 10:51] LABS: CHLORIDE 97 mEq/L (98-107)
[2019-05-15 11:00] LABS: PHOSPHORUS 2.5 mg/dL (2.5-4.9)
[2019-05-15 20:00] VITALS: BP 135/58
[2019-05-15] MEDS: FAMOTIDINE 20MG TABLET PO SCH (20:59)
[2019-05-15] MEDS: INSULIN GLARGINE UD 100 UNITS/ML SYR SUBCUT SCH (21:05)
[2019-05-16] MEDS: IPRATROPIUM/ALBUTEROL 0.5-3(2.5)MG/3ML NEB HHN SCH ×4 (01:12→20:52)
[2019-05-16] MEDS: SODIUM CHLORIDE 0.9% INJ 3ML FLUSH IVF SCH ×4 (05:57→21:21)
[2019-05-16] MEDS: DILTIAZEM HCL 90MG TABLET PO SCH ×3 (05:59→21:21)
[2019-05-16] MEDS: CLINDAMYCIN HCL 150MG CAPSULE PO SCH ×4 (05:59→23:38)
[2019-05-16] MEDS: SILDENAFIL CITRATE 20MG TABLET PO SCH ×3 (06:05→21:21)
[2019-05-16] MEDS: BLOOD SUGAR DIAGNOSTIC STRIP TEST SCH ×4 (06:05→21:20)
[2019-05-16 08:00] VITALS: BP 128/60
[2019-05-16] MEDS: DOCUSATE SODIUM 100MG CAPSULE PO SCH ×3 (09:00→17:08)
[2019-05-16] MEDS: INSULIN LISPRO 100 UNITS/ML SUBCUT SCH ×4 (09:00→21:54)
[2019-05-16] MEDS: CLONIDINE 0.1MG TABLET PO SCH ×2 (09:00→20:34)
[2019-05-16] MEDS: PREDNISONE 10MG TABLET PO SCH (09:30)
[2019-05-16] MEDS: APIXABAN 2.5 MG TABLET PO SCH ×2 (09:30→17:08)
[2019-05-16] MEDS: FUROSEMIDE 40MG TABLET PO SCH (09:30)
[2019-05-16 20:00] VITALS: BP 118/43
[2019-05-16] MEDS: FAMOTIDINE 20MG TABLET PO SCH (20:34)
[2019-05-16] MEDS: INSULIN GLARGINE UD 100 UNITS/ML SYR SUBCUT SCH (21:55)
[2019-05-17] MEDS: IPRATROPIUM/ALBUTEROL 0.5-3(2.5)MG/3ML NEB HHN SCH ×4 (02:08→20:21)
[2019-05-17] MEDS: DILTIAZEM HCL 90MG TABLET PO SCH ×3 (06:30→22:00)
[2019-05-17] MEDS: SILDENAFIL CITRATE 20MG TABLET PO SCH ×3 (06:30→22:27)
[2019-05-17] MEDS: CLINDAMYCIN HCL 150MG CAPSULE PO SCH ×3 (06:30→17:32)
[2019-05-17] MEDS: SODIUM CHLORIDE 0.9% INJ 3ML FLUSH IVF SCH ×3 (06:30→22:29)
[2019-05-17] MEDS: MAGNESIUM HYDROXIDE 400MG/5ML 30ML UDC PO PRN (06:31)
[2019-05-17] MEDS: BLOOD SUGAR DIAGNOSTIC STRIP TEST SCH ×4 (06:35→21:00)
[2019-05-17] MEDS: INSULIN LISPRO 100 UNITS/ML SUBCUT SCH ×4 (06:46→22:39)
[2019-05-17 07:34] LABS: BASOPHILS % 0.2 % (0.0-2.0); EOSINOPHILS % 0.7 % (0.0-5.0); HEMOGLOBIN. 9.6 g/dL (12.0-16.0); MEAN CORPUSCULAR HEMOGLOBIN 33.5 pg (28.0-32.0); MEAN CORPUSCULAR VOLUME 97.9 fL (81.0-99.0); MONOCYTES % 9.3 % (2.0-8.0); NEUTROPHILS % 79.8 % (40.0-76.0); PLATELET 177 x1000/uL (130-400); RED BLOOD CELL COUNT 2.86 mill/uL (4.2-5.4); RED CELL DISTRIBUTION WIDTH 13.7 % (11.6-14.6)
[2019-05-17 08:13] VITALS: BP 137/54
[2019-05-17] MEDS: PREDNISONE 10MG TABLET PO SCH (09:04)
[2019-05-17] MEDS: DOCUSATE SODIUM 100MG CAPSULE PO SCH ×2 (09:04→17:33)
[2019-05-17] MEDS: CLONIDINE 0.1MG TABLET PO SCH ×2 (09:05→21:00)
[2019-05-17] MEDS: APIXABAN 2.5 MG TABLET PO SCH ×2 (09:05→17:33)
[2019-05-17] MEDS: FUROSEMIDE 40MG TABLET PO SCH (09:05)
[2019-05-17 19:06] LABS: 25-HYDROXY VITAMIN D3 17 ng/mL (.)
[2019-05-17 20:00] VITALS: BP 98/43
[2019-05-17] MEDS: FAMOTIDINE 20MG TABLET PO SCH (22:30)
[2019-05-17] MEDS: INSULIN GLARGINE UD 100 UNITS/ML SYR SUBCUT SCH (22:31)
[2019-05-17 23:00] VITALS: BP 109/62
[2019-05-18] MEDS: CLINDAMYCIN HCL 150MG CAPSULE PO SCH ×4 (00:49→17:43)
[2019-05-18] MEDS: IPRATROPIUM/ALBUTEROL 0.5-3(2.5)MG/3ML NEB HHN SCH ×4 (01:44→20:26)
[2019-05-18] MEDS: DILTIAZEM HCL 90MG TABLET PO SCH ×3 (06:00→22:00)
[2019-05-18] MEDS: SODIUM CHLORIDE 0.9% INJ 3ML FLUSH IVF SCH ×3 (06:03→22:35)
[2019-05-18] MEDS: SILDENAFIL CITRATE 20MG TABLET PO SCH ×3 (06:04→22:32)
[2019-05-18] MEDS: BLOOD SUGAR DIAGNOSTIC STRIP TEST SCH ×4 (06:04→21:00)
[2019-05-18] MEDS: INSULIN LISPRO 100 UNITS/ML SUBCUT SCH ×4 (06:07→22:35)
[2019-05-18] MEDS: FUROSEMIDE 40MG TABLET PO SCH (10:09)
[2019-05-18] MEDS: APIXABAN 2.5 MG TABLET PO SCH ×2 (10:09→17:43)
[2019-05-18] MEDS: DOCUSATE SODIUM 100MG CAPSULE PO SCH ×2 (10:09→17:43)
[2019-05-18] MEDS: PREDNISONE 10MG TABLET PO SCH (10:10)
[2019-05-18] MEDS: CLONIDINE 0.1MG TABLET PO SCH ×2 (10:10→21:00)
[2019-05-18] MEDS ORDERED: ERGOCALCIFEROL 50000UNITS CAPSULE PO SCH (14:00)
[2019-05-18 20:00] VITALS: BP 117/46
[2019-05-18] MEDS: INSULIN GLARGINE UD 100 UNITS/ML SYR SUBCUT SCH (22:34)
[2019-05-19] MEDS: CLINDAMYCIN HCL 150MG CAPSULE PO SCH ×5 (00:56→23:00)
[2019-05-19] MEDS: FAMOTIDINE 20MG TABLET PO SCH ×2 (00:57→23:00)
[2019-05-19] MEDS: IPRATROPIUM/ALBUTEROL 0.5-3(2.5)MG/3ML NEB HHN SCH ×4 (02:27→20:37)
[2019-05-19] MEDS: DILTIAZEM HCL 90MG TABLET PO SCH ×3 (06:00→22:00)
[2019-05-19] MEDS: SILDENAFIL CITRATE 20MG TABLET PO SCH ×3 (06:12→22:59)
[2019-05-19] MEDS: SODIUM CHLORIDE 0.9% INJ 3ML FLUSH IVF SCH ×3 (06:13→22:00)
[2019-05-19] MEDS: BLOOD SUGAR DIAGNOSTIC STRIP TEST SCH ×4 (06:14→21:00)
[2019-05-19] MEDS: INSULIN LISPRO 100 UNITS/ML SUBCUT SCH ×4 (06:16→23:04)
[2019-05-19 08:06] VITALS: BP 118/64
[2019-05-19] MEDS: CLONIDINE 0.1MG TABLET PO SCH ×2 (09:00→21:00)
[2019-05-19] MEDS: PREDNISONE 10MG TABLET PO SCH (09:36)
[2019-05-19] MEDS: DOCUSATE SODIUM 100MG CAPSULE PO SCH ×2 (09:36→17:32)
[2019-05-19] MEDS: APIXABAN 2.5 MG TABLET PO SCH ×2 (09:36→17:32)
[2019-05-19] MEDS: FUROSEMIDE 40MG TABLET PO SCH (09:36)
[2019-05-19 17:33] LABS: CHLORIDE 98 mEq/L (98-107)
[2019-05-19 20:00] VITALS: BP 129/58
[2019-05-19] MEDS: INSULIN GLARGINE UD 100 UNITS/ML SYR SUBCUT SCH (23:02)
[2019-05-20] MEDS: IPRATROPIUM/ALBUTEROL 0.5-3(2.5)MG/3ML NEB HHN SCH ×4 (02:20→21:17)
[2019-05-20] MEDS: DILTIAZEM HCL 90MG TABLET PO SCH ×3 (06:00→22:00)
[2019-05-20] MEDS: BLOOD SUGAR DIAGNOSTIC STRIP TEST SCH ×4 (06:01→21:00)
[2019-05-20] MEDS: SODIUM CHLORIDE 0.9% INJ 3ML FLUSH IVF SCH ×3 (06:01→22:41)
[2019-05-20] MEDS: SILDENAFIL CITRATE 20MG TABLET PO SCH ×3 (06:02→22:43)
[2019-05-20] MEDS: INSULIN LISPRO 100 UNITS/ML SUBCUT SCH ×4 (06:02→22:46)
[2019-05-20 07:37] LABS: BASOPHILS % 0.3 % (0.0-2.0); EOSINOPHILS % 1.1 % (0.0-5.0); HEMATOCRIT. 27.8 % (36.0-48.0); HEMOGLOBIN. 9.3 g/dL (12.0-16.0); LYMPHOCYTES % 12.5 % (20.0-50.0); MEAN CORPUSCULAR HEMOGLOBIN 32.7 pg (28.0-32.0); MEAN CORPUSCULAR VOLUME 98.1 fL (81.0-99.0); MEAN PLATELET VOLUME 9.2 fl (7.4-10.4); MONOCYTES % 11.5 % (2.0-8.0); NEUTROPHILS % 74.6 % (40.0-76.0); PLATELET 174 x1000/uL (130-400); RED BLOOD CELL COUNT 2.83 mill/uL (4.2-5.4); RED CELL DISTRIBUTION WIDTH 13.8 % (11.6-14.6)
[2019-05-20 08:00] VITALS: BP 133/60
[2019-05-20] MEDS: APIXABAN 2.5 MG TABLET PO SCH ×2 (09:48→16:41)
[2019-05-20] MEDS: DOCUSATE SODIUM 100MG CAPSULE PO SCH ×2 (09:48→16:41)
[2019-05-20] MEDS: CLONIDINE 0.1MG TABLET PO SCH ×2 (09:48→21:00)
[2019-05-20] MEDS: FUROSEMIDE 40MG TABLET PO SCH (09:48)
[2019-05-20] MEDS: PREDNISONE 10MG TABLET PO SCH (09:48)
[2019-05-20 20:00] VITALS: BP 128/66
[2019-05-20] MEDS: FAMOTIDINE 20MG TABLET PO SCH (22:42)
[2019-05-20] MEDS: INSULIN GLARGINE UD 100 UNITS/ML SYR SUBCUT SCH (22:47)
[2019-05-21] MEDS: IPRATROPIUM/ALBUTEROL 0.5-3(2.5)MG/3ML NEB HHN SCH ×2 (01:29→07:49)
[2019-05-21] MEDS: DILTIAZEM HCL 90MG TABLET PO SCH (05:59)
[2019-05-21] MEDS: SODIUM CHLORIDE 0.9% INJ 3ML FLUSH IVF SCH (06:00)
[2019-05-21] MEDS: INSULIN LISPRO 100 UNITS/ML SUBCUT SCH (06:00)
[2019-05-21] MEDS: BLOOD SUGAR DIAGNOSTIC STRIP TEST SCH (06:35)
[2019-05-21] MEDS: SILDENAFIL CITRATE 20MG TABLET PO SCH (06:36)
[2019-05-21 08:00] VITALS: BP 142/67
[2019-05-21] MEDS: CLONIDINE 0.1MG TABLET PO SCH (08:11)
[2019-05-21] MEDS: DOCUSATE SODIUM 100MG CAPSULE PO SCH (08:11)
[2019-05-21] MEDS: FUROSEMIDE 40MG TABLET PO SCH (08:11)
[2019-05-21] MEDS: APIXABAN 2.5 MG TABLET PO SCH (08:11)
[2019-05-21] MEDS: PREDNISONE 10MG TABLET PO SCH (08:11)
[2019-05-21 11:15] VITALS: BP 136/88
== END 2019-05-21 11:45 | disposition home health service (06) | DRG 189 ==
PROVIDERS: ADMIT Physical Medicine & Rehabilitation Spinal Cord Injury Medicine; ATTEND Internal Medicine
DX: J96.20 Acute and chronic respiratory failure, unspecified whether with hypoxia or hypercapnia (principal); I50.41 Acute combined systolic (congestive) and diastolic (congestive) heart failure; J18.9 Pneumonia, unspecified organism; J44.1 Chronic obstructive pulmonary disease with (acute) exacerbation; I42.9 Cardiomyopathy, unspecified; N17.9 Acute kidney failure, unspecified; I48.20 Chronic atrial fibrillation, unspecified; I13.0 Hypertensive heart and chronic kidney disease with heart failure and stage 1 through stage 4 chronic kidney disease, or unspecified chronic kidney disease; Z68.41 Body mass index [BMI] 40.0-44.9, adult; E46 Unspecified protein-calorie malnutrition; J44.0 Chronic obstructive pulmonary disease with (acute) lower respiratory infection; N18.9 Chronic kidney disease, unspecified; R53.81 Other malaise; R26.9 Unspecified abnormalities of gait and mobility; E11.22 Type 2 diabetes mellitus with diabetic chronic kidney disease; E11.65 Type 2 diabetes mellitus with hyperglycemia; E11.42 Type 2 diabetes mellitus with diabetic polyneuropathy; E66.01 Morbid (severe) obesity due to excess calories; I25.10 Atherosclerotic heart disease of native coronary artery without angina pectoris; K59.00 Constipation, unspecified; I27.20 Pulmonary hypertension, unspecified; L60.0 Ingrowing nail; Z99.81 Dependence on supplemental oxygen; Z79.01 Long term (current) use of anticoagulants
CPT/HCPCS: 36415; 76770; 80048; 80053; 81003; 82306; 82607; 82728; 82746; 82962; 83540; 83550; 83735; 84100; 84134; 84443; 85025; 92523; 92610; 93970; 94640; 97110; 97116; 97162; 97166; 97530; 97535; J1815; J7512; J7620; Q0162; Q0163

== ENCOUNTER 2020-03-13 10:27 | Inpatient (IN) | payer MEDICARE, MEDICAID ==
[~2020-03-13] VITALS: Ht 170.2 cm; Wt 135.6 kg
[~2020-03-13 10:27] MED LIST changes: -ACET12.53 PO; +CARV25TA47 PO; +GABA-529 PO; -HYDR-4133 PO; +HYDR-4134 PO; -METO25TA6 PO
[2020-03-13 11:47] LABS: EOSINOPHILS % 1.7 % (0.0-5.0); HEMATOCRIT. 29.7 % (36.0-48.0); HEMOGLOBIN. 9.7 g/dL (12.0-16.0); LYMPHOCYTES % 19.1 % (20.0-50.0); MEAN CORPUSCULAR HEMOGLOBIN 33.6 pg (28.0-32.0); MEAN CORPUSCULAR VOLUME 103.1 fL (81.0-99.0); MEAN PLATELET VOLUME 9.9 fl (7.4-10.4); MONOCYTES % 8.6 % (2.0-8.0); NEUTROPHILS % 69.6 % (40.0-76.0); PLATELET 146 x1000/uL (130-400); RED BLOOD CELL COUNT 2.88 mill/uL (4.2-5.4); RED CELL DISTRIBUTION WIDTH 14.8 % (11.6-14.6)
[2020-03-13 13:41] LABS: CHLORIDE 104 mEq/L (98-107)
[2020-03-13 13:51] LABS: INR 1.1; PARTIAL THROMBOPLASTIN TIME 30.7 sec (23.4-31.0); PROTHROMBIN TIME 11.8 sec (9.6-11.0)
[2020-03-13] MEDS ORDERED: CLONIDINE 0.1MG TABLET PO PRN (15:30)
[2020-03-13] MEDS ORDERED: ONDANSETRON HCL 4MG/2ML INJ IV PRN (15:30)
[2020-03-13 17:00] VITALS: BP 145/72
[2020-03-13] MEDS: FUROSEMIDE 40MG/4ML VIAL IVP SCH (17:43)
[2020-03-13] MEDS: APIXABAN 2.5 MG TABLET PO SCH (17:43)
[2020-03-13] MEDS: GABAPENTIN 100MG CAPSULE PO SCH (17:43)
[2020-03-13] MEDS: CARVEDILOL 12.5MG TABLET PO SCH ×2 (17:44→21:17)
[2020-03-13] MEDS ORDERED: DEXTROSE 50% WATER 50ML SYRINGE IV PRN (18:45)
[2020-03-13] MEDS ORDERED: *PATIENT'S OWN MEDICATION STORAGE XX SCH (19:00)
[2020-03-13 20:00] VITALS: BP 113/45
[2020-03-13] MEDS: INSULIN LISPRO 100 UNITS/ML SUBCUT SCH (21:00)
[2020-03-13] MEDS: BLOOD SUGAR DIAGNOSTIC STRIP TEST SCH (21:17)
[2020-03-13] MEDS: IPRATROPIUM/ALBUTEROL 0.5-3(2.5)MG/3ML NEB HHN PRN (21:52)
[2020-03-13] MEDS: HYDRALAZINE HCL 25MG TABLET PO SCH (22:13)
[2020-03-13] MEDS: ACETAMINOPHEN 325MG TABLET PO PRN (22:15)
[2020-03-14] VITALS: BP 124/71
[2020-03-14 04:00] VITALS: BP 137/51
[2020-03-14] MEDS: INSULIN LISPRO 100 UNITS/ML SUBCUT SCH ×4 (07:15→21:20)
[2020-03-14] MEDS: BLOOD SUGAR DIAGNOSTIC STRIP TEST SCH ×4 (07:19→20:38)
[2020-03-14] MEDS: HYDRALAZINE HCL 25MG TABLET PO SCH ×3 (07:22→21:22)
[2020-03-14 07:54] LABS: BASOPHILS % 1.1 % (0.0-2.0); EOSINOPHILS % 3.3 % (0.0-5.0); HEMATOCRIT. 28.1 % (36.0-48.0); HEMOGLOBIN. 9.4 g/dL (12.0-16.0); LYMPHOCYTES % 27.6 % (20.0-50.0); MEAN CORPUSCULAR HEMOGLOBIN 33.4 pg (28.0-32.0); MEAN CORPUSCULAR VOLUME 99.7 fL (81.0-99.0); MEAN PLATELET VOLUME 9.1 fl (7.4-10.4); MONOCYTES % 11.9 % (2.0-8.0); NEUTROPHILS % 56.1 % (40.0-76.0); PLATELET 121 x1000/uL (130-400); RED BLOOD CELL COUNT 2.81 mill/uL (4.2-5.4); RED CELL DISTRIBUTION WIDTH 14.4 % (11.6-14.6)
[2020-03-14 08:00] VITALS: BP 121/59
[2020-03-14] MEDS: CARVEDILOL 12.5MG TABLET PO SCH ×2 (09:00→21:22)
[2020-03-14] MEDS: APIXABAN 2.5 MG TABLET PO SCH ×2 (10:02→17:09)
[2020-03-14] MEDS: FUROSEMIDE 40MG/4ML VIAL IVP SCH ×2 (10:02→17:09)
[2020-03-14] MEDS: GABAPENTIN 100MG CAPSULE PO SCH ×2 (10:02→17:09)
[2020-03-14] MEDS: GLIPIZIDE 5MG TABLET PO SCH (10:03)
[2020-03-14 12:00] VITALS: BP 123/48
[2020-03-14] MEDS ORDERED: COLC0.6C3 PO (14:34)
[2020-03-14] MEDS: IPRATROPIUM/ALBUTEROL 0.5-3(2.5)MG/3ML NEB HHN PRN (14:36)
[2020-03-14 16:00] VITALS: BP 139/62
[2020-03-14] MEDS: COLCHICINE 0.6MG TABLET PO SCH (17:09)
[2020-03-14 20:00] VITALS: BP 127/53
[2020-03-14] MEDS: ACETAMINOPHEN 325MG TABLET PO PRN (21:28)
[2020-03-14] MEDS: IPRATROPIUM/ALBUTEROL 0.5-3(2.5)MG/3ML NEB HHN SCH (22:17)
[2020-03-14] MEDS: BUDESONIDE 0.5MG/2ML NEB HHN SCH (22:18)
[2020-03-15] VITALS: BP 129/47
[2020-03-15] MEDS: IPRATROPIUM/ALBUTEROL 0.5-3(2.5)MG/3ML NEB HHN SCH ×4 (00:19→13:31)
[2020-03-15 04:00] VITALS: BP 105/29
[2020-03-15] MEDS: INSULIN LISPRO 100 UNITS/ML SUBCUT SCH ×2 (06:10→12:21)
[2020-03-15] MEDS: BLOOD SUGAR DIAGNOSTIC STRIP TEST SCH ×2 (06:10→11:52)
[2020-03-15] MEDS: HYDRALAZINE HCL 25MG TABLET PO SCH (06:12)
[2020-03-15] MEDS: GLIPIZIDE 5MG TABLET PO SCH (06:45)
[2020-03-15 06:56] LABS: EOSINOPHILS % 3.1 % (0.0-5.0); HEMOGLOBIN. 9.6 g/dL (12.0-16.0); LYMPHOCYTES % 20.7 % (20.0-50.0); MEAN CORPUSCULAR HEMOGLOBIN 33.3 pg (28.0-32.0); MEAN CORPUSCULAR VOLUME 100.4 fL (81.0-99.0); MEAN PLATELET VOLUME 9.5 fl (7.4-10.4); MONOCYTES % 9.9 % (2.0-8.0); NEUTROPHILS % 65.3 % (40.0-76.0); PLATELET 117 x1000/uL (130-400); RED BLOOD CELL COUNT 2.89 mill/uL (4.2-5.4); RED CELL DISTRIBUTION WIDTH 14.4 % (11.6-14.6)
[2020-03-15 07:29] LABS: PHOSPHORUS 3.8 mg/dL (2.5-4.9)
[2020-03-15 08:00] VITALS: BP 110/50
[2020-03-15 08:09] LABS: BG BASE EXCESS 4.4 mmol/L (-2.0-2.0); BG CARBOXYHEMOGLOBIN 0.3 % (0.5-1.5); BG DEOXYHEMOGLOBIN 2.8 % (0.0-5.0); BG FRACTION INSPIRED OXYGEN 24; BG METHEMOGLOBIN 0.1 % (0.0-1.5); BG OXYGEN SATURATION 97.2 % (92.0-98.5); BG OXYHEMOGLOBIN 96.8 % (94.0-97.0); BG PCO2 56.7 mmHg (35.0-45.0); BG PH 7.355 (7.350-7.450); BG PO2 99.7 mmHg (75.0-100.0); BG SAMPLE SITE RIGHT RADIAL; BG TOTAL HEMOGLOBIN 10.3 g/dL (12.0-18.0); BG VENT MODE NASAL CANNULA
[2020-03-15] MEDS: CARVEDILOL 12.5MG TABLET PO SCH (09:00)
[2020-03-15] MEDS: FUROSEMIDE 40MG/4ML VIAL IVP SCH (09:04)
[2020-03-15] MEDS: COLCHICINE 0.6MG TABLET PO SCH (09:04)
[2020-03-15] MEDS: GABAPENTIN 100MG CAPSULE PO SCH (09:05)
[2020-03-15] MEDS: APIXABAN 2.5 MG TABLET PO SCH (09:05)
[2020-03-15] MEDS: BUDESONIDE 0.5MG/2ML NEB HHN SCH (09:27)
[2020-03-15 11:03] VITALS: BP 110/50
[2020-03-15 12:00] VITALS: BP 119/66
[2020-03-15 14:25] VITALS: BP 119/66
== END 2020-03-15 15:05 | disposition home or self-care (01) | DRG 291 ==
LOC: ER 10:31 → 5WST 14:20 → EDBEDREQ 14:21 → ENRESERV 15:58
PROVIDERS: ADMIT Internal Medicine Nephrology; ATTEND Internal Medicine Nephrology
DX: I13.0 Hypertensive heart and chronic kidney disease with heart failure and stage 1 through stage 4 chronic kidney disease, or unspecified chronic kidney disease (principal); J96.00 Acute respiratory failure, unspecified whether with hypoxia or hypercapnia; I50.31 Acute diastolic (congestive) heart failure; N17.9 Acute kidney failure, unspecified; Z68.42 Body mass index [BMI] 45.0-49.9, adult; J44.1 Chronic obstructive pulmonary disease with (acute) exacerbation; N18.4 Chronic kidney disease, stage 4 (severe); I42.8 Other cardiomyopathies; E11.21 Type 2 diabetes mellitus with diabetic nephropathy; E11.649 Type 2 diabetes mellitus with hypoglycemia without coma; I48.91 Unspecified atrial fibrillation; J44.9 Chronic obstructive pulmonary disease, unspecified; E66.9 Obesity, unspecified; E11.22 Type 2 diabetes mellitus with diabetic chronic kidney disease; D64.9 Anemia, unspecified; Z20.828 Contact with and (suspected) exposure to other viral communicable diseases; Z79.01 Long term (current) use of anticoagulants; Z79.899 Other long term (current) drug therapy; R80.9 Proteinuria, unspecified
CPT/HCPCS: 36415; 36600; 71045; 80048; 80053; 82375; 82805; 82962; 83036; 83735; 83880; 84100; 84443; 84484; 85025; 87426; 93005; 93306; 93970; 94640; 97162; 97530; 99285; J1815; J1940; J7626

== ENCOUNTER 2021-10-20 13:14 | Emergency (ER) | payer MEDICARE, MEDICAID ==
[~2021-10-20] VITALS: Ht 172.7 cm; Wt 146.0 kg
[~2021-10-20 13:14] MED LIST changes: -FURO40TA5 PO; -HYDR-4134 PO
[2021-10-20 13:48] VITALS: BP 99/40
== END 2021-10-21 00:32 | disposition left against medical advice (07) ==
LOC: ER 14:35
DX: Z53.21 Procedure and treatment not carried out due to patient leaving prior to being seen by health care provider (principal)

== ENCOUNTER 2022-05-09 17:36 | Inpatient (IN) | payer MEDICARE, MEDICAID ==
[~2022-05-09] VITALS: Ht 172.7 cm; Wt 132.4 kg
[2022-05-09] MEDS ORDERED: SODIUM CHLORIDE 0.9% 1,000 ML IV ONE (18:15)
[2022-05-09 19:54] LABS: D-DIMER 2.71 mg/L FEU (<0.50); INR 1.1; PROTHROMBIN TIME 12.2 sec (9.6-11.0)
[2022-05-09] MEDS ORDERED: MEROPENEM 1,000 MG in SODIUM CHLORIDE 0.9% 100 ML IV SCH (20:00)
[2022-05-09] MEDS ORDERED: VANCOMYCIN 1G PREMIX 200 ML IV SCH (20:00)
[2022-05-09 21:02] LABS: CLARITY URINE TURBID (CLEAR); COLOR URINE DARK YELLOW (YELLOW); KETONES URINE TRACE (NEGATIVE); LEUKOCYTE ESTERASE URINE 3+ (NEGATIVE); NITRITE URINE NEGATIVE (NEGATIVE); OCCULT BLOOD URINE 3+ (NEGATIVE); PROTEIN URINE 4+ (NEGATIVE); SPECIFIC GRAVITY URINE 1.021 (1.005-1.030); UROBILINOGEN URINE 0.2 E.U./dL (0.2-1.0)
[2022-05-09 21:10] LABS: CHLORIDE 98 mEq/L (98-107)
[2022-05-09 21:30] LABS: BG BASE EXCESS -0.8 mmol/L (-2.0-2.0); BG CARBOXYHEMOGLOBIN 1.6 % (0.5-1.5); BG DEOXYHEMOGLOBIN 1.6 % (0.0-5.0); BG FRACTION INSPIRED OXYGEN 28; BG HCO3 ACT 25.7 mmol/L (22.0-26.0); BG METHEMOGLOBIN 0.3 % (0.0-1.5); BG OXYGEN SATURATION 98.4 % (92.0-98.5); BG OXYHEMOGLOBIN 96.5 % (94.0-97.0); BG PCO2 49.5 mmHg (35.0-45.0); BG PH 7.333 (7.350-7.450); BG PO2 124.7 mmHg (75.0-100.0); BG SAMPLE SITE RIGHT BRACHIAL; BG TOTAL HEMOGLOBIN 13.9 g/dL (12.0-18.0); BG VENT MODE NASAL CANNULA
[2022-05-09] MEDS ORDERED: MEROPENEM 500MG in NORMAL SALINE 50ML IV SCH (22:00)
[2022-05-10] VITALS (9 sets, daily range): BP systolic 95–118; BP diastolic 44–86
[2022-05-10] MEDS ORDERED: IPRATROPIUM/ALBUTEROL 0.5-3(2.5)MG/3ML NEB NEB PRN
[2022-05-10] MEDS ORDERED: DEXTROSE 50% WATER 50ML SYRINGE IV PRN
[2022-05-10] MEDS ORDERED: CLONIDINE 0.1MG TABLET PO PRN
[2022-05-10] MEDS ORDERED: DIPHENHYDRAMINE 50MG/ML VIAL IV PRN
[2022-05-10] MEDS ORDERED: ONDANSETRON HCL 4MG/2ML INJ IV PRN
[2022-05-10] MEDS ORDERED: VANCOMYCIN 1G PREMIX 200 ML IV SCH
[2022-05-10] MEDS ORDERED: MAGNESIUM HYDROXIDE 400MG/5ML 30ML UDC PO PRN
[2022-05-10] MEDS ORDERED: ZOLPIDEM TARTRATE 5MG TABLET PO PRN
[2022-05-10] MEDS ORDERED: MAGNESIUM/ALUMINUM HYDROXIDE/SIMETHICONE 30ML UDC PO PRN
[2022-05-10] MEDS ORDERED: LORAZEPAM 0.5MG TABLET PO PRN
[2022-05-10] MEDS ORDERED: MEROPENEM 1,000 MG in SODIUM CHLORIDE 0.9% 100 ML IV SCH ×2
[2022-05-10] MEDS ORDERED: ACETAMINOPHEN 325MG TABLET PO PRN
[2022-05-10] MEDS: SODIUM CHLORIDE 0.9% INJ 3ML FLUSH IVF SCH ×3 (06:23→21:09)
[2022-05-10] MEDS: BLOOD SUGAR DIAGNOSTIC STRIP TEST SCH ×5 (06:52→21:08)
[2022-05-10] MEDS: PANTOPRAZOLE 40MG DR TABLET PO SCH ×2 (06:52→21:06)
[2022-05-10] MEDS ORDERED: NALOXONE HCL 0.4MG/ML VIAL IV PRN (07:45)
[2022-05-10] MEDS: CARVEDILOL 3.125 MG TABLET PO SCH ×2 (08:24→21:00)
[2022-05-10] MEDS: DOCUSATE SODIUM 100MG CAPSULE PO SCH ×2 (08:25→17:45)
[2022-05-10] MEDS: APIXABAN 2.5 MG TABLET PO SCH ×2 (08:25→17:44)
[2022-05-10] MEDS: MEROPENEM 500MG in NORMAL SALINE 50ML IV SCH (08:26)
[2022-05-10] MEDS: INSULIN LISPRO 100 UNITS/ML SUBCUT SCH ×4 (08:27→21:00)
[2022-05-10] MEDS ORDERED: IOHEXOL-350 100 ML BOTTLE ONE (09:15)
[2022-05-10] MEDS ORDERED: AZITHROMYCIN 500 MG TABLET PO NR (11:00)
[2022-05-10] MEDS: HYDROCODONE/ACETAMINOPHEN 5/325MG TABLET PO PRN (13:50)
[2022-05-10] MEDS: HYDROCODONE/ACETAMINOPHEN 10/325MG TABLET PO PRN (18:40)
[2022-05-10] MEDS ORDERED: MEROPENEM 500MG in NORMAL SALINE 50ML IV SCH (21:00)
[2022-05-10 21:29] LABS: PHOSPHORUS 3.4 mg/dL (2.5-4.9)
[2022-05-10 21:56] LABS: HEPATITIS B SURFACE ANTIGEN NEGATIVE
[2022-05-11] VITALS: BP 98/57
[2022-05-11 04:00] VITALS: BP 102/54
[2022-05-11] MEDS: SODIUM CHLORIDE 0.9% INJ 3ML FLUSH IVF SCH ×3 (06:00→20:16)
[2022-05-11] MEDS: HYDROCODONE/ACETAMINOPHEN 5/325MG TABLET PO PRN (07:04)
[2022-05-11] MEDS: INSULIN LISPRO 100 UNITS/ML SUBCUT SCH ×4 (07:07→20:29)
[2022-05-11] MEDS: BLOOD SUGAR DIAGNOSTIC STRIP TEST SCH ×4 (07:07→20:29)
[2022-05-11 08:00] VITALS: BP 103/53
[2022-05-11] MEDS: CARVEDILOL 3.125 MG TABLET PO SCH ×3 (09:00→20:16)
[2022-05-11] MEDS: AZITHROMYCIN 500 MG TABLET PO SCH (09:32)
[2022-05-11] MEDS: APIXABAN 2.5 MG TABLET PO SCH ×2 (09:32→17:38)
[2022-05-11] MEDS: DOCUSATE SODIUM 100MG CAPSULE PO SCH ×2 (09:33→17:38)
[2022-05-11] MEDS: PANTOPRAZOLE 40MG DR TABLET PO SCH ×2 (09:33→20:15)
[2022-05-11] MEDS: MEROPENEM 500MG in NORMAL SALINE 50ML IV SCH (09:36)
[2022-05-11] MEDS ORDERED: VANCOMYCIN 500MG PREMIX 100 ML IV NR (11:00)
[2022-05-11 12:00] VITALS: BP 96/44
[2022-05-11 16:00] VITALS: BP 96/55
[2022-05-11 20:00] VITALS: BP 99/50
[2022-05-11] MEDS: GUAIFENESIN 200MG/10ML SUGAR FREE UDC PO PRN (20:15)
[2022-05-11 21:32] LABS: HEMATOCRIT. 30.9 % (36.0-48.0); HEMOGLOBIN. 9.5 g/dL (12.0-16.0); MEAN CORPUSCULAR HEMOGLOBIN 35.3 pg (28.0-32.0); MEAN CORPUSCULAR VOLUME 115.1 fL (81.0-99.0); MEAN PLATELET VOLUME 8.4 fl (7.4-10.4); PLATELET 223 x1000/uL (130-400); RED BLOOD CELL COUNT 2.68 mill/uL (4.2-5.4); RED CELL DISTRIBUTION WIDTH 14.5 % (11.6-14.6)
[2022-05-11 22:10] LABS: PLATELET ESTIMATE NORMAL
[2022-05-12] VITALS (9 sets, daily range): BP systolic 91–118; BP diastolic 46–86
[2022-05-12] MEDS: SODIUM CHLORIDE 0.9% INJ 3ML FLUSH IVF SCH ×3 (05:29→20:51)
[2022-05-12] MEDS: BLOOD SUGAR DIAGNOSTIC STRIP TEST SCH ×4 (06:08→20:50)
[2022-05-12] MEDS: PANTOPRAZOLE 40MG DR TABLET PO SCH ×2 (07:40→20:40)
[2022-05-12] MEDS: INSULIN LISPRO 100 UNITS/ML SUBCUT SCH ×4 (08:10→20:50)
[2022-05-12] MEDS: APIXABAN 2.5 MG TABLET PO SCH ×2 (08:35→16:35)
[2022-05-12] MEDS: DOCUSATE SODIUM 100MG CAPSULE PO SCH ×2 (08:35→16:40)
[2022-05-12] MEDS: CARVEDILOL 3.125 MG TABLET PO SCH ×2 (08:35→20:26)
[2022-05-12] MEDS: HYDROCODONE/ACETAMINOPHEN 5/325MG TABLET PO PRN (08:59)
[2022-05-12] MEDS: MEROPENEM 500MG in NORMAL SALINE 50ML IV SCH (10:49)
[2022-05-12] MEDS: AZITHROMYCIN 500 MG TABLET PO SCH (10:49)
[2022-05-12 11:40] LABS: HEMATOCRIT. 27.9 % (36.0-48.0); MEAN CORPUSCULAR HEMOGLOBIN 35.4 pg (28.0-32.0); MEAN CORPUSCULAR VOLUME 110.3 fL (81.0-99.0); MEAN PLATELET VOLUME 8.8 fl (7.4-10.4); PLATELET 246 x1000/uL (130-400); RED BLOOD CELL COUNT 2.53 mill/uL (4.2-5.4); RED CELL DISTRIBUTION WIDTH 14.2 % (11.6-14.6)
[2022-05-12 14:18] LABS: PLATELET ESTIMATE NORMAL
[2022-05-12] MEDS: ACETAMINOPHEN 325MG TABLET PO PRN ×2 (16:35→20:40)
[2022-05-12] MEDS: GUAIFENESIN 200MG/10ML SUGAR FREE UDC PO PRN (20:39)
[2022-05-13] VITALS: BP 107/49
[2022-05-13 04:00] VITALS: BP 91/44
[2022-05-13] MEDS: SODIUM CHLORIDE 0.9% INJ 3ML FLUSH IVF SCH ×3 (05:41→21:16)
[2022-05-13] MEDS: BLOOD SUGAR DIAGNOSTIC STRIP TEST SCH ×4 (06:13→21:13)
[2022-05-13 06:55] LABS: BASOPHILS % 0.4 % (0.0-2.0); HEMATOCRIT. 28.7 % (36.0-48.0); HEMOGLOBIN. 9.4 g/dL (12.0-16.0); MEAN CORPUSCULAR HEMOGLOBIN 36.2 pg (28.0-32.0); MEAN CORPUSCULAR VOLUME 110.3 fL (81.0-99.0); MONOCYTES % 6.7 % (2.0-8.0); NEUTROPHILS % 78.9 % (40.0-76.0); PLATELET 250 x1000/uL (130-400); RED CELL DISTRIBUTION WIDTH 14.5 % (11.6-14.6)
[2022-05-13] MEDS: PANTOPRAZOLE 40MG DR TABLET PO SCH ×2 (07:40→21:14)
[2022-05-13 08:00] VITALS: BP 122/51
[2022-05-13] MEDS: MEROPENEM 500MG in NORMAL SALINE 50ML IV SCH (08:00)
[2022-05-13] MEDS: INSULIN LISPRO 100 UNITS/ML SUBCUT SCH ×4 (08:10→21:15)
[2022-05-13] MEDS: CARVEDILOL 3.125 MG TABLET PO SCH ×2 (09:00→21:00)
[2022-05-13] MEDS: DOCUSATE SODIUM 100MG CAPSULE PO SCH ×2 (09:00→18:10)
[2022-05-13] MEDS: APIXABAN 2.5 MG TABLET PO SCH ×2 (09:00→18:10)
[2022-05-13] MEDS: AZITHROMYCIN 500 MG TABLET PO SCH (09:00)
[2022-05-13 12:00] VITALS: BP 117/58
[2022-05-13 16:00] VITALS: BP 125/59
[2022-05-13 20:00] VITALS: BP 106/44
[2022-05-14] VITALS: BP 94/57
[2022-05-14 04:00] VITALS: BP 112/56
[2022-05-14] MEDS: SODIUM CHLORIDE 0.9% INJ 3ML FLUSH IVF SCH ×3 (05:37→21:18)
[2022-05-14] MEDS: BLOOD SUGAR DIAGNOSTIC STRIP TEST SCH ×4 (06:57→20:35)
[2022-05-14 08:00] VITALS: BP 104/59
[2022-05-14] MEDS: AZITHROMYCIN 500 MG TABLET PO SCH (09:11)
[2022-05-14] MEDS: PANTOPRAZOLE 40MG DR TABLET PO SCH (09:11)
[2022-05-14] MEDS: APIXABAN 2.5 MG TABLET PO SCH ×2 (09:11→17:50)
[2022-05-14] MEDS: DOCUSATE SODIUM 100MG CAPSULE PO SCH ×2 (09:11→17:50)
[2022-05-14] MEDS: CARVEDILOL 3.125 MG TABLET PO SCH ×2 (09:12→20:30)
[2022-05-14] MEDS: MEROPENEM 500MG in NORMAL SALINE 50ML IV SCH (09:17)
[2022-05-14] MEDS: INSULIN LISPRO 100 UNITS/ML SUBCUT SCH ×4 (09:35→20:35)
[2022-05-14 11:51] VITALS: BP 96/50
[2022-05-14 15:59] VITALS: BP 107/56
[2022-05-14] MEDS ORDERED: DICL50TA9 PO (19:43)
[2022-05-14] MEDS ORDERED: GABA-532 PO (19:44)
[2022-05-14] MEDS ORDERED: PROT40 PO (19:47)
[2022-05-14] MEDS ORDERED: COR3 PO (19:49)
[2022-05-14] MEDS ORDERED: LIP40 PO (19:51)
[2022-05-14] MEDS ORDERED: CARB25TA3 PO (19:52)
[2022-05-14] MEDS ORDERED: ALLO100T PO (19:53)
[2022-05-14] MEDS ORDERED: SEVE800T8 PO (19:55)
[2022-05-14] MEDS ORDERED: CARB-299 PO (19:56)
[2022-05-14] MEDS ORDERED: GLIP5TAB12 PO (19:58)
[2022-05-14 20:00] VITALS: BP 84/32
[2022-05-14] MEDS: HYDROCODONE/ACETAMINOPHEN 5/325MG TABLET PO PRN (20:30)
[2022-05-15] VITALS (13 sets, daily range): BP systolic 98–112; BP diastolic 44–94
[2022-05-15] MEDS: CEFTRIAXONE 1,000 MG in DEXTROSE 5% WATER 50 ML IV SCH ×2 (05:09→23:06)
[2022-05-15] MEDS: SODIUM CHLORIDE 0.9% INJ 3ML FLUSH IVF SCH ×3 (05:09→20:58)
[2022-05-15] MEDS: INSULIN LISPRO 100 UNITS/ML SUBCUT SCH ×4 (06:41→20:57)
[2022-05-15] MEDS: BLOOD SUGAR DIAGNOSTIC STRIP TEST SCH ×4 (06:41→20:57)
[2022-05-15 06:43] LABS: HEMATOCRIT. 26.3 % (36.0-48.0); HEMOGLOBIN. 8.4 g/dL (12.0-16.0); MEAN CORPUSCULAR HEMOGLOBIN 35.8 pg (28.0-32.0); MEAN CORPUSCULAR VOLUME 112.1 fL (81.0-99.0); MEAN PLATELET VOLUME 8.4 fl (7.4-10.4); PLATELET 245 x1000/uL (130-400); RED BLOOD CELL COUNT 2.35 mill/uL (4.2-5.4); RED CELL DISTRIBUTION WIDTH 14.5 % (11.6-14.6)
[2022-05-15] MEDS: CARVEDILOL 3.125 MG TABLET PO SCH ×2 (08:38→21:01)
[2022-05-15] MEDS: APIXABAN 2.5 MG TABLET PO SCH ×2 (08:38→17:16)
[2022-05-15] MEDS: DOCUSATE SODIUM 100MG CAPSULE PO SCH ×2 (08:38→17:16)
[2022-05-15] MEDS: FAMOTIDINE 20MG TABLET PO SCH (08:39)
[2022-05-15] MEDS: HYDROCODONE/ACETAMINOPHEN 10/325MG TABLET PO PRN (10:53)
[2022-05-15 17:30] LABS: PLATELET ESTIMATE NORMAL
[2022-05-15] MEDS ORDERED: VANCOMYCIN 500MG PREMIX 100 ML IV NR (18:00)
[2022-05-16 00:40] VITALS: BP 102/53
[2022-05-16 04:00] VITALS: BP 121/56
[2022-05-16] MEDS: SODIUM CHLORIDE 0.9% INJ 3ML FLUSH IVF SCH (06:08)
[2022-05-16] MEDS: BLOOD SUGAR DIAGNOSTIC STRIP TEST SCH (07:57)
[2022-05-16] MEDS: INSULIN LISPRO 100 UNITS/ML SUBCUT SCH (07:58)
[2022-05-16 08:00] VITALS: BP 113/59
[2022-05-16] MEDS: DOCUSATE SODIUM 100MG CAPSULE PO SCH (08:34)
[2022-05-16] MEDS: FAMOTIDINE 20MG TABLET PO SCH (08:34)
[2022-05-16] MEDS: CARVEDILOL 3.125 MG TABLET PO SCH (08:34)
[2022-05-16] MEDS: APIXABAN 2.5 MG TABLET PO SCH (08:35)
[2022-05-16 10:05] VITALS: BP 113/60
[2022-05-16] MEDS ORDERED: ALBUTEROL (0.083%) 2.5MG/3ML NEB HHN PRN (12:15)
[2022-05-16] MEDS ORDERED: IPRATROPIUM BROMIDE (0.02%) 0.5MG/2.5ML NEB HHN PRN (12:15)
== END 2022-05-16 11:10 | disposition home health service (06) | DRG 314 ==
LOC: ER 17:36 → EDBEDREQTM 20:59 → EDBEDREQ 20:59 → MICUSO 23:46 → 7WST 05-10 11:45
PROVIDERS: ADMIT Internal Medicine; ATTEND Internal Medicine
PROC: 5A1D70Z Performance of Urinary Filtration, Intermittent, Less than 6 Hours Per Day (ICD-10-PCS; principal; 2022-05-10)
PROC: 5A1D70Z Performance of Urinary Filtration, Intermittent, Less than 6 Hours Per Day (ICD-10-PCS; 2022-05-12)
PROC: 5A1D70Z Performance of Urinary Filtration, Intermittent, Less than 6 Hours Per Day (ICD-10-PCS; 2022-05-15)
DX: T82.7XXA Infection and inflammatory reaction due to other cardiac and vascular devices, implants and grafts, initial encounter (principal); A41.02 Sepsis due to Methicillin resistant Staphylococcus aureus; I26.99 Other pulmonary embolism without acute cor pulmonale; L89.153 Pressure ulcer of sacral region, stage 3; J18.9 Pneumonia, unspecified organism; N18.6 End stage renal disease; I13.2 Hypertensive heart and chronic kidney disease with heart failure and with stage 5 chronic kidney disease, or end stage renal disease; I48.20 Chronic atrial fibrillation, unspecified; N39.0 Urinary tract infection, site not specified; I50.32 Chronic diastolic (congestive) heart failure; J44.0 Chronic obstructive pulmonary disease with (acute) lower respiratory infection; Z68.41 Body mass index [BMI] 40.0-44.9, adult; E11.22 Type 2 diabetes mellitus with diabetic chronic kidney disease; Z20.822 Contact with and (suspected) exposure to COVID-19; R09.02 Hypoxemia; I25.10 Atherosclerotic heart disease of native coronary artery without angina pectoris; J44.9 Chronic obstructive pulmonary disease, unspecified; D53.9 Nutritional anemia, unspecified; E88.09 Other disorders of plasma-protein metabolism, not elsewhere classified; E66.9 Obesity, unspecified; Z79.4 Long term (current) use of insulin; Z88.0 Allergy status to penicillin; Z99.2 Dependence on renal dialysis; Z99.81 Dependence on supplemental oxygen; Z82.49 Family history of ischemic heart disease and other diseases of the circulatory system
CPT/HCPCS: 36415; 36600; 71045; 71275; 80048; 80053; 80202; 81003; 82040; 82375; 82805; 82962; 83036; 83605; 83880; 84100; 84134; 84145; 84484; 85025; 85379; 86705; 86709; 86803; 87077; 87186; 87340; 87426; 87804; 90935; 93005; 93306; 97166; 97535; 99285; A6261; C9803; J0696; J1815; J2185; J3370; J7030; J7060; Q9967

== ENCOUNTER 2022-09-04 12:11 | Inpatient (IN) | payer MEDICARE, MEDICAID ==
[~2022-09-04] VITALS: Ht 172.7 cm; Wt 118.1 kg
[~2022-09-04 12:11] MED LIST changes: +ALLO100T PO; +CARB-324 PO; +CARB25TA3 PO; -CARV25TA47 PO; +COR3 PO; +DICL50TA9 PO; -GABA-529 PO; +GABA-532 PO; +LIP40 PO; +PROT40 PO; +SEVE800T8 PO
[2022-09-04 13:50] LABS: HEMATOCRIT. 24.8 % (36.0-48.0); HEMOGLOBIN. 7.9 g/dL (12.0-16.0); MEAN CORPUSCULAR HEMOGLOBIN 31.8 pg (28.0-32.0); MEAN CORPUSCULAR VOLUME 99.5 fL (81.0-99.0); MEAN PLATELET VOLUME 10.3 fl (7.4-10.4); PLATELET 148 x1000/uL (130-400); RED BLOOD CELL COUNT 2.49 mill/uL (4.2-5.4); RED CELL DISTRIBUTION WIDTH 19.5 % (11.6-14.6)
[2022-09-04 13:59] LABS: CHLORIDE 103 mEq/L (98-107)
[2022-09-04 14:11] LABS: PLATELET ESTIMATE NORMAL
[2022-09-04] MEDS ORDERED: VANCOMYCIN 1G PREMIX 200 ML IV SCH (14:45)
[2022-09-04] MEDS ORDERED: CEFEPIME 2,000 MG in DEXT 5% WATER 100 ML IV ONE (14:45)
[2022-09-04 18:06] VITALS: BP 90/43
[2022-09-04 18:37] LABS: HEPATITIS B SURFACE ANTIGEN NEGATIVE
[2022-09-04] MEDS ORDERED: ENOXAPARIN 120MG/0.8ML SYR SUBCUT NR (19:00)
[2022-09-04 20:00] VITALS: BP 85/42
[2022-09-04] MEDS ORDERED: VANCOMYCIN 1G PREMIX 200 ML IV NR (20:30)
[2022-09-04] MEDS ORDERED: NALOXONE HCL 0.4MG/ML VIAL IV PRN (21:00)
[2022-09-04] MEDS ORDERED: SODIUM CHLORIDE 0.9% 250 ML IV ONE ×2 (21:00→23:00)
[2022-09-04] MEDS ORDERED: HYDROCODONE/ACETAMINOPHEN 5/325MG TABLET PO PRN (21:00)
[2022-09-04 21:50] LABS: PHOSPHORUS 2.7 mg/dL (2.5-4.9)
[2022-09-04] MEDS: MIDODRINE HCL 5MG TABLET PO SCH (23:21)
[2022-09-04 23:46] LABS: INR 1.4
[2022-09-05] VITALS (13 sets, daily range): BP systolic 77–120; BP diastolic 28–56
[2022-09-05] MEDS ORDERED: CEFEPIME 2,000 MG in DEXT 5% WATER 100 ML IV SCH (06:30)
[2022-09-05] MEDS ORDERED: ONDANSETRON HCL 4MG/2ML INJ IV PRN (08:00)
[2022-09-05] MEDS: MIDODRINE HCL 5MG TABLET PO SCH ×3 (09:00→17:46)
[2022-09-05] MEDS: ALLOPURINOL 100 MG TABLET PO SCH (09:00)
[2022-09-05] MEDS: MEROPENEM 500 MG in SODIUM CHLORIDE 0.9% 50 ML IV SCH ×2 (11:29→22:49)
[2022-09-05 13:14] LABS: HEMATOCRIT. 23.5 % (36.0-48.0); HEMOGLOBIN. 7.7 g/dL (12.0-16.0); MEAN CORPUSCULAR HEMOGLOBIN 32.2 pg (28.0-32.0); MEAN CORPUSCULAR VOLUME 98.6 fL (81.0-99.0); MEAN PLATELET VOLUME 9.5 fl (7.4-10.4); PLATELET 111 x1000/uL (130-400); RED BLOOD CELL COUNT 2.38 mill/uL (4.2-5.4)
[2022-09-05 13:49] LABS: PLATELET ESTIMATE SLIGHTLY DECREASED
[2022-09-05 14:46] LABS: CHLORIDE 101 mEq/L (98-107)
[2022-09-05] MEDS ORDERED: CEFEPIME 1,000 MG in DEXTROSE 5% WATER 50 ML IV SCH (15:00)
[2022-09-05] MEDS: APIXABAN 2.5 MG TABLET PO SCH (20:00)
[2022-09-05] MEDS ORDERED: ENOXAPARIN 120MG/0.8ML SYR SUBCUT SCH (21:00)
[2022-09-05] MEDS: ATORVASTATIN CALCIUM 40MG TABLET PO SCH (21:00)
[2022-09-05] MEDS: CARBIDOPA/LEVODOPA 25/100MG TABLET PO SCH (21:00)
[2022-09-06] VITALS (9 sets, daily range): BP systolic 86–136; BP diastolic 28–57
[2022-09-06 05:18] LABS: HEMATOCRIT. 26.4 % (36.0-48.0); HEMOGLOBIN. 8.6 g/dL (12.0-16.0); MEAN CORPUSCULAR HEMOGLOBIN 31.6 pg (28.0-32.0); MEAN CORPUSCULAR VOLUME 97.3 fL (81.0-99.0); MEAN PLATELET VOLUME 9.7 fl (7.4-10.4); PLATELET 101 x1000/uL (130-400); RED BLOOD CELL COUNT 2.72 mill/uL (4.2-5.4); RED CELL DISTRIBUTION WIDTH 18.2 % (11.6-14.6)
[2022-09-06 05:27] LABS: INR 1.4; PROTHROMBIN TIME 14.8 sec (9.6-11.0)
[2022-09-06 05:52] LABS: PLATELET ESTIMATE NORMAL
[2022-09-06] MEDS: APIXABAN 2.5 MG TABLET PO SCH ×2 (10:42→21:19)
[2022-09-06] MEDS: MEROPENEM 500 MG in SODIUM CHLORIDE 0.9% 50 ML IV SCH ×2 (10:42→22:05)
[2022-09-06] MEDS: MIDODRINE HCL 5MG TABLET PO SCH ×3 (10:43→18:51)
[2022-09-06] MEDS: ALLOPURINOL 100 MG TABLET PO SCH (11:02)
[2022-09-06 18:06] LABS: HEPATITIS B SURFACE ANTIGEN NEGATIVE
[2022-09-06] MEDS: CARBIDOPA/LEVODOPA 25/100MG TABLET PO SCH (21:19)
[2022-09-06] MEDS: ACETAMINOPHEN 325MG TABLET PO PRN (21:20)
[2022-09-06] MEDS: DAPTOMYCIN 750 MG in SODIUM CHLORIDE 0.9% 50 ML IV SCH (21:20)
[2022-09-06] MEDS: ATORVASTATIN CALCIUM 40MG TABLET PO SCH (21:20)
[2022-09-07] VITALS (27 sets, daily range): BP systolic 87–157; BP diastolic 45–103
[2022-09-07 00:54] LABS: CREATINE KINASE 26 IU/L (26-192)
[2022-09-07] MEDS: ALLOPURINOL 100 MG TABLET PO SCH (08:53)
[2022-09-07] MEDS: MIDODRINE HCL 5MG TABLET PO SCH ×3 (08:53→17:58)
[2022-09-07] MEDS: APIXABAN 2.5 MG TABLET PO SCH ×2 (08:53→21:00)
[2022-09-07] MEDS: MEROPENEM 500 MG in SODIUM CHLORIDE 0.9% 50 ML IV SCH (08:54)
[2022-09-07] MEDS ORDERED: MIDODRINE HCL 5MG TABLET PO NR (13:30)
[2022-09-07] MEDS: NOREPINEPHRINE 32 MG in DEXT 5% WATER 218 ML IV PRN (13:40)
[2022-09-07] MEDS ORDERED: ALBUMIN HUMAN 12.5GM/50ML (25%) IV NR (14:30)
[2022-09-07] MEDS: PHENYLEPHRINE 100 MG in DEXT 5% WATER 240 ML IV PRN (15:05)
[2022-09-07] MEDS: CARBIDOPA/LEVODOPA 25/100MG TABLET PO SCH (21:00)
[2022-09-07] MEDS: ATORVASTATIN CALCIUM 40MG TABLET PO SCH (21:00)
[2022-09-07 23:24] LABS: HEMATOCRIT. 31.1 % (36.0-48.0); HEMOGLOBIN. 9.5 g/dL (12.0-16.0); MEAN CORPUSCULAR HEMOGLOBIN 31.3 pg (28.0-32.0); MEAN CORPUSCULAR VOLUME 102.2 fL (81.0-99.0); MEAN PLATELET VOLUME 10.1 fl (7.4-10.4); PLATELET 107 x1000/uL (130-400); RED BLOOD CELL COUNT 3.05 mill/uL (4.2-5.4); RED CELL DISTRIBUTION WIDTH 19.8 % (11.6-14.6)
[2022-09-07 23:44] LABS: CHLORIDE 99 mEq/L (98-107)
[2022-09-08] VITALS (63 sets, daily range): BP systolic 76–153; BP diastolic 43–101
[2022-09-08 00:14] LABS: HEPATITIS B SURFACE ANTIGEN NEGATIVE
[2022-09-08] MEDS: PHENYLEPHRINE 100 MG in DEXT 5% WATER 240 ML IV PRN ×3 (01:37→20:15)
[2022-09-08 05:35] LABS: HEMATOCRIT. 30.7 % (36.0-48.0); HEMOGLOBIN. 9.6 g/dL (12.0-16.0); MEAN CORPUSCULAR HEMOGLOBIN 31.7 pg (28.0-32.0); MEAN CORPUSCULAR VOLUME 101.1 fL (81.0-99.0); MEAN PLATELET VOLUME 10.6 fl (7.4-10.4); PLATELET 111 x1000/uL (130-400); RED BLOOD CELL COUNT 3.04 mill/uL (4.2-5.4); RED CELL DISTRIBUTION WIDTH 19.7 % (11.6-14.6)
[2022-09-08] MEDS ORDERED: DEXTROSE 5% WATER 1,000 ML IV SCH (06:30)
[2022-09-08 07:18] LABS: NUCLEATED RED BLOOD CELLS 6 /100 WBC
[2022-09-08 07:19] LABS: PLATELET ESTIMATE SLIGHTLY DECREASED
[2022-09-08] MEDS: SODIUM BICARBONATE 150 MEQ in DEXTROSE 5% WATER 1,000 ML IV SCH (08:53)
[2022-09-08 10:20] LABS: NUCLEATED RED BLOOD CELLS 1 /100 WBC
[2022-09-08 10:21] LABS: PLATELET ESTIMATE SLIGHTLY DECREASED
[2022-09-08] MEDS: MEROPENEM 500 MG in SODIUM CHLORIDE 0.9% 50 ML IV SCH (12:05)
[2022-09-08] MEDS: MIDODRINE HCL 5MG TABLET PO SCH ×3 (12:06→18:01)
[2022-09-08] MEDS: ALLOPURINOL 100 MG TABLET PO SCH (12:18)
[2022-09-08] MEDS: APIXABAN 2.5 MG TABLET PO SCH ×2 (12:18→20:09)
[2022-09-08 12:37] LABS: BG BASE EXCESS -17.6 mmol/L (-2.0-2.0); BG CARBOXYHEMOGLOBIN 0.3 % (0.5-1.5); BG DEOXYHEMOGLOBIN 1.9 % (0.0-5.0); BG FRACTION INSPIRED OXYGEN 30; BG HCO3 ACT 8.7 mmol/L (22.0-26.0); BG METHEMOGLOBIN 0.3 % (0.0-1.5); BG OXYGEN SATURATION 98.1 % (92.0-98.5); BG OXYHEMOGLOBIN 97.5 % (94.0-97.0); BG PCO2 22.7 mmHg (35.0-45.0); BG PO2 131.8 mmHg (75.0-100.0); BG SAMPLE SITE RIGHT BRACHIAL; BG TOTAL HEMOGLOBIN 11.1 g/dL (12.0-18.0); BG VENT MODE NASAL CANNULA
[2022-09-08] MEDS ORDERED: SODIUM BICARBONATE 8.4% 1 MEQ/ML 50ML SYR IV NR (12:45)
[2022-09-08] MEDS: AMIODARONE HCL 200 MG TABLET PO SCH ×2 (13:59→18:05)
[2022-09-08] MEDS: ACETAMINOPHEN 325MG TABLET PO PRN (18:02)
[2022-09-08] MEDS: ATORVASTATIN CALCIUM 40MG TABLET PO SCH (20:09)
[2022-09-08] MEDS: CARBIDOPA/LEVODOPA 25/100MG TABLET PO SCH (20:09)
[2022-09-08] MEDS: DAPTOMYCIN 750 MG in SODIUM CHLORIDE 0.9% 50 ML IV SCH (20:14)
[2022-09-09] VITALS (80 sets, daily range): BP systolic 39–135; BP diastolic 22–100
[2022-09-09] MEDS: AMIODARONE HCL 200 MG TABLET PO SCH ×3 (01:10→17:15)
[2022-09-09] MEDS: PHENYLEPHRINE 100 MG in DEXT 5% WATER 240 ML IV PRN ×5 (03:12→23:11)
[2022-09-09] MEDS: SODIUM BICARBONATE 150 MEQ in DEXTROSE 5% WATER 1,000 ML IV SCH (05:51)
[2022-09-09 05:59] LABS: HEMATOCRIT. 27.9 % (36.0-48.0); HEMOGLOBIN. 8.6 g/dL (12.0-16.0); MEAN CORPUSCULAR HEMOGLOBIN 31.4 pg (28.0-32.0); MEAN CORPUSCULAR VOLUME 102.3 fL (81.0-99.0); MEAN PLATELET VOLUME 10.5 fl (7.4-10.4); PLATELET 77 x1000/uL (130-400); RED BLOOD CELL COUNT 2.73 mill/uL (4.2-5.4); RED CELL DISTRIBUTION WIDTH 20.4 % (11.6-14.6)
[2022-09-09] MEDS: MEROPENEM 500 MG in SODIUM CHLORIDE 0.9% 50 ML IV SCH (08:07)
[2022-09-09] MEDS: MIDODRINE HCL 5MG TABLET PO SCH ×3 (08:08→16:45)
[2022-09-09] MEDS: APIXABAN 2.5 MG TABLET PO SCH (08:08)
[2022-09-09] MEDS: ALLOPURINOL 100 MG TABLET PO SCH (08:08)
[2022-09-09 08:32] LABS: BG BASE EXCESS -18.6 mmol/L (-2.0-2.0); BG CARBOXYHEMOGLOBIN 0.3 % (0.5-1.5); BG DEOXYHEMOGLOBIN 1.2 % (0.0-5.0); BG FRACTION INSPIRED OXYGEN 44; BG HCO3 ACT 8.3 mmol/L (22.0-26.0); BG METHEMOGLOBIN 0.9 % (0.0-1.5); BG OXYGEN SATURATION 98.8 % (92.0-98.5); BG OXYHEMOGLOBIN 97.6 % (94.0-97.0); BG PCO2 23.3 mmHg (35.0-45.0); BG PH 7.169 (7.350-7.450); BG PO2 168.9 mmHg (75.0-100.0); BG SAMPLE SITE RIGHT BRACHIAL; BG VENT MODE NASAL CANNULA
[2022-09-09] MEDS ORDERED: SODIUM BICARBONATE 8.4% 1 MEQ/ML 50ML SYR IV NR (08:39)
[2022-09-09 10:16] LABS: NUCLEATED RED BLOOD CELLS 2 /100 WBC; PLATELET ESTIMATE DECREASED
[2022-09-09] MEDS: VASOPRESSIN 20 UNIT in SODIUM CHLORIDE 0.9% 99 ML IV PRN ×3 (12:03→23:52)
[2022-09-09] MEDS ORDERED: SODIUM CHLORIDE 0.9% 1,000 ML IV ONE (12:30)
[2022-09-09] MEDS: PANTOPRAZOLE SODIUM 40 MG/VIAL IV SCH (13:21)
[2022-09-09] MEDS: HYDROCORTISONE SOD SUCCINATE 100 MG/2 ML VIAL IV SCH ×2 (13:21→21:05)
[2022-09-09] MEDS: NOREPINEPHRINE 32 MG in DEXT 5% WATER 218 ML IV PRN (13:33)
[2022-09-09] MEDS: DILTIAZEM HCL 5MG/ML 5ML VIAL IV PRN ×3 (15:34→23:23)
[2022-09-09] MEDS: ATORVASTATIN CALCIUM 40MG TABLET PO SCH (21:05)
[2022-09-09] MEDS: CARBIDOPA/LEVODOPA 25/100MG TABLET PO SCH (21:05)
[2022-09-09 21:06] LABS: PROTHROMBIN TIME 63.4 sec (9.6-11.0)
[2022-09-09 21:10] LABS: INR 6.6
[2022-09-09] MEDS ORDERED: PHYTONADIONE 10MG/ML AMP SUBCUT NR (22:30)
[2022-09-09] MEDS ORDERED: SODIUM CHLORIDE 0.9% 1000ML BAG (SEPSIS BOLUS) IV NR (22:34)
[2022-09-10] VITALS (44 sets, daily range): BP systolic 43–212; BP diastolic 19–87
[2022-09-10] MEDS: AMIODARONE HCL 200 MG TABLET PO SCH ×3 (01:07→18:03)
[2022-09-10] MEDS: PHENYLEPHRINE 100 MG in DEXT 5% WATER 240 ML IV PRN ×4 (03:38→18:04)
[2022-09-10] MEDS: HYDROCORTISONE SOD SUCCINATE 100 MG/2 ML VIAL IV SCH ×3 (05:19→22:11)
[2022-09-10] MEDS: SODIUM BICARBONATE 150 MEQ in DEXTROSE 5% WATER 1,000 ML IV SCH (05:19)
[2022-09-10 05:37] LABS: HEMATOCRIT. 29.3 % (36.0-48.0); HEMOGLOBIN. 8.9 g/dL (12.0-16.0); MEAN CORPUSCULAR HEMOGLOBIN 31.3 pg (28.0-32.0); MEAN CORPUSCULAR VOLUME 103.2 fL (81.0-99.0); PLATELET 61 x1000/uL (130-400); RED BLOOD CELL COUNT 2.84 mill/uL (4.2-5.4); RED CELL DISTRIBUTION WIDTH 20.4 % (11.6-14.6)
[2022-09-10] MEDS: NOREPINEPHRINE 32 MG in DEXT 5% WATER 218 ML IV PRN ×4 (05:44→21:34)
[2022-09-10 07:37] LABS: PROTHROMBIN TIME 53.6 sec (9.6-11.0)
[2022-09-10] MEDS ORDERED: DEXTROSE 50% WATER 50ML SYRINGE IV PRN (07:45)
[2022-09-10 08:09] LABS: INR 5.6
[2022-09-10] MEDS: PANTOPRAZOLE SODIUM 40 MG/VIAL IV SCH (08:33)
[2022-09-10] MEDS: MEROPENEM 500 MG in SODIUM CHLORIDE 0.9% 50 ML IV SCH (08:33)
[2022-09-10] MEDS: ALLOPURINOL 100 MG TABLET PO SCH (08:33)
[2022-09-10] MEDS: MIDODRINE HCL 5MG TABLET PO SCH ×3 (08:34→16:53)
[2022-09-10] MEDS ORDERED: INSULIN GLARGINE 100 UNITS/ML SUBCUT SCH (10:00)
[2022-09-10] MEDS: BLOOD SUGAR DIAGNOSTIC STRIP TEST SCH ×3 (12:04→21:24)
[2022-09-10] MEDS: INSULIN LISPRO 100 UNITS/ML SUBCUT SCH ×3 (12:05→22:13)
[2022-09-10] MEDS: VASOPRESSIN 20 UNIT in SODIUM CHLORIDE 0.9% 99 ML IV PRN (12:11)
[2022-09-10 12:19] LABS: NUCLEATED RED BLOOD CELLS 1 /100 WBC
[2022-09-10 12:20] LABS: PLATELET ESTIMATE MARKEDLY DECREASED
[2022-09-10] MEDS: DAPTOMYCIN 750 MG in SODIUM CHLORIDE 0.9% 50 ML IV SCH (21:25)
[2022-09-10] MEDS: ATORVASTATIN CALCIUM 40MG TABLET PO SCH (21:25)
[2022-09-10] MEDS: CARBIDOPA/LEVODOPA 25/100MG TABLET PO SCH (21:35)
[2022-09-11 00:01] VITALS: BP 128/83
[2022-09-11] MEDS: PHENYLEPHRINE 100 MG in DEXT 5% WATER 240 ML IV PRN ×2 (00:27→05:22)
[2022-09-11] MEDS: VASOPRESSIN 20 UNIT in SODIUM CHLORIDE 0.9% 99 ML IV PRN (00:52)
[2022-09-11] MEDS: NOREPINEPHRINE 32 MG in DEXT 5% WATER 218 ML IV PRN ×2 (01:54→06:34)
[2022-09-11] MEDS: AMIODARONE HCL 200 MG TABLET PO SCH (01:56)
[2022-09-11] MEDS: SODIUM BICARBONATE 150 MEQ in DEXTROSE 5% WATER 1,000 ML IV SCH (04:34)
[2022-09-11 04:51] VITALS: BP 51/25
[2022-09-11 05:01] VITALS: BP 42/36
[2022-09-11 05:45] VITALS: BP 36/27
[2022-09-11 06:00] VITALS: BP 42/31
[2022-09-11] MEDS: BLOOD SUGAR DIAGNOSTIC STRIP TEST SCH (06:05)
[2022-09-11] MEDS: HYDROCORTISONE SOD SUCCINATE 100 MG/2 ML VIAL IV SCH (06:26)
[2022-09-11 06:32] VITALS: BP 37/28
[2022-09-11] MEDS: INSULIN LISPRO 100 UNITS/ML SUBCUT SCH (06:33)
== END 2022-09-11 08:02 | DRG 314 ==
LOC: ER 12:11 → 7EST 15:08 → MICUSO 09-07 14:05
PROVIDERS: ADMIT Internal Medicine; ATTEND Internal Medicine
PROC: 5A1D70Z Performance of Urinary Filtration, Intermittent, Less than 6 Hours Per Day (ICD-10-PCS; 2022-09-05)
PROC: 30233N1 Transfusion of Nonautologous Red Blood Cells into Peripheral Vein, Percutaneous Approach (ICD-10-PCS; principal; 2022-09-06)
PROC: 5A1D70Z Performance of Urinary Filtration, Intermittent, Less than 6 Hours Per Day (ICD-10-PCS; 2022-09-08)
DX: T82.7XXA Infection and inflammatory reaction due to other cardiac and vascular devices, implants and grafts, initial encounter (principal); A41.9 Sepsis, unspecified organism; G93.41 Metabolic encephalopathy; L89.313 Pressure ulcer of right buttock, stage 3; N18.6 End stage renal disease; J96.01 Acute respiratory failure with hypoxia; R65.21 Severe sepsis with septic shock; I13.2 Hypertensive heart and chronic kidney disease with heart failure and with stage 5 chronic kidney disease, or end stage renal disease; I48.20 Chronic atrial fibrillation, unspecified; E44.0 Moderate protein-calorie malnutrition; E87.1 Hypo-osmolality and hyponatremia; I50.22 Chronic systolic (congestive) heart failure; E87.20 Acidosis, unspecified; I46.9 Cardiac arrest, cause unspecified; D63.8 Anemia in other chronic diseases classified elsewhere; I27.20 Pulmonary hypertension, unspecified; D69.6 Thrombocytopenia, unspecified; Z66 Do not resuscitate; E11.22 Type 2 diabetes mellitus with diabetic chronic kidney disease; Z99.2 Dependence on renal dialysis; J45.909 Unspecified asthma, uncomplicated; Z68.39 Body mass index [BMI] 39.0-39.9, adult; L89.159 Pressure ulcer of sacral region, unspecified stage; E66.01 Morbid (severe) obesity due to excess calories; Z86.14 Personal history of Methicillin resistant Staphylococcus aureus infection; Z88.0 Allergy status to penicillin
CPT/HCPCS: 36415; 36600; 71045; 80048; 80053; 80202; 82040; 82375; 82550; 82805; 82962; 83036; 83605; 83880; 84100; 84134; 84145; 84484; 85025; 85384; 86705; 86709; 86803; 86850; 86900; 86920; 87340; 90935; 92610; 93005; 93306; 99291; A6261; C9113; J0692; J0878; J1650; J1720; J1815; J2185; J2370; J2405; J3370; J3430; J3490; J7050; J7060; J7070; P9016; P9047